=== PATIENT | male | born 1930 | race Asian ===

== ENCOUNTER 2018-03-12 12:28 | Inpatient (IN) | payer OTHER ==
[~2018-03-12] VITALS: Ht 160 cm; Wt 64.9 kg
[2018-03-12 12:57] VITALS: BP 102/67
[2018-03-12 14:15] LABS: BASOPHILS % (AUTO) 0.2 % (0.0-2.0); EOSINOPHILS # (AUTO) 0.3 K/uL (0-0.4); HEMATOCRIT 31.4 % (36-52); HEMOGLOBIN 10.5 g/dL (12.0-18.0); LYMPHOCYTES # (AUTO) 1.4 K/uL (2.0-11.5); LYMPHOCYTES % (AUTO) 20.2 % (20.5-51.1); MEAN CORPUSCULAR HEMOGLOBIN 33 pg (27-31); MEAN CORPUSCULAR HGB CONC 33 g/dL (33-37); MEAN CORPUSCULAR VOLUME 99.7 fL (80-94); MONOCYTES # (AUTO) 0.7 K/uL (0.8-1.0); MONOCYTES % (AUTO) 10.7 % (1.7-9.3); NEUTROPHILS # (AUTO) 4.4 K/uL (1.8-7.7); NEUTROPHILS % (AUTO) 64.9 % (42.2-75.2); PLATELET COUNT (AUTO) 295 K/uL (140-450); RED BLOOD CELL COUNT(AUTO) 3.15 MIL/uL (4.20-6.10); WHITE BLOOD COUNT (AUTO) 6.8 K/uL (4.8-10.8)
[2018-03-12] MEDS ORDERED: ASPI81CT89 PO (14:32)
[2018-03-12] MEDS ORDERED: FINA5TAB1 PO (14:34)
[2018-03-12 14:36] LABS: APPEARANCE,URINE CLOUDY (CLEAR); BILIRUBIN,URINE NEGATIVE (NEGATIVE); BLOOD, URINE NEGATIVE (NEGATIVE); COLOR,URINE YELLOW (YELLOW); LEUKOCYTE ESTERASE ,URINE 1+ (NEGATIVE); NITRITE, URINE NEGATIVE (NEGATIVE); PH,URINE >=9.0 (5.0-9.0); UGLUCOSE NEGATIVE (NEGATIVE)
[2018-03-12 14:37] LABS: RBC,URINE NONE SEEN /HPF (0-5); WBC,URINE 0-5 (RARE) /HPF (0-5)
[2018-03-12] MEDS ORDERED: METO5SOL19 PO (14:37)
[2018-03-12] MEDS ORDERED: TAMS0.4C96 PO (14:40)
[2018-03-12] MEDS ORDERED: CETI1SYR27 PO (14:42)
[2018-03-12 14:43] LABS: ANION GAP 12.5 (8-16); CARBON DIOXIDE 26.8 mmol/L (21-32); CHLORIDE 102 mmol/L (98-107); POTASSIUM 4.3 mmol/L (3.5-5.1); SODIUM SERUM 137 mmol/L (136-145)
[2018-03-12] MEDS ORDERED: ATOR20TA PO (14:43)
[2018-03-12 14:44] LABS: ALBUMIN 3.9 g/dL (3.4-5.0); ASPARTATE AMINOTRANSFERASE 16 U/L (15-37); CREATININE 2.2 mg/dL (0.7-1.3); GLUCOSE 127 mg/dL (74-106); TOTAL BILIRUBIN 0.2 mg/dL (0.0-1.0); UREA NITROGEN, BLOOD 37 mg/dL (7-18)
[2018-03-12] MEDS ORDERED: CLOP75TA55 PO (14:45)
[2018-03-12] MEDS ORDERED: CELE200C PO (14:46)
[2018-03-12] MEDS ORDERED: AMLO5TAB PO (14:47)
[2018-03-12] MEDS ORDERED: DOCU100C16 PO (14:48)
[2018-03-12] MEDS ORDERED: ESOM40EC PO (14:49)
[2018-03-12] MEDS ORDERED: ROPI0.5T PO (14:51)
[2018-03-12] MEDS ORDERED: NACL 0.9% 1,000 ML IV ONE (14:55)
[2018-03-12] MEDS ORDERED: HYDROcodone/APAP 5/325 MG 1 TAB TAB PO PRN (17:05)
[2018-03-12] MEDS ORDERED: ONDANSETRON 4 MG/2 ML VIAL IM/IVP PRN (17:05)
[2018-03-12] MEDS ORDERED: ACETAMINOPHEN 325 MG TAB PO PRN (17:05)
[2018-03-12] MEDS ORDERED: DOCUSATE SODIUM 100 MG GELCAP PO PRN (17:05)
[2018-03-12] MEDS ORDERED: MECLIZINE 25 MG TAB PO PRN (17:10)
[2018-03-12 17:55] LABS: MAGNESIUM 2.7 mg/dL (1.8-2.4); PHOSPHORUS 4.2 mg/dL (2.5-4.9); PROTHROMBIN TIME 9.9 secs (10.8-13.4)
[2018-03-12 17:56] LABS: FREE T4 (FREE THYROXINE) 1.04 ng/dL (0.76-1.46); THYROID STIMULATING HORMONE 0.94 uIU/mL (0.34-3.74)
[2018-03-12] MEDS ORDERED: DOCUSATE SODIUM 100 MG GELCAP PO SCH (18:00)
[2018-03-12] MEDS: NACL 0.9% 1,000 ML IV SCH (18:21)
[2018-03-12 20:30] VITALS: BP 129/60
[2018-03-12] MEDS: TAMSULOSIN 0.4 MG CAP PO SCH (21:53)
[2018-03-12] MEDS: METOCLOPRAMIDE 10 MG/10 ML SYRP UDC PO SCH (21:53)
[2018-03-12] MEDS: rOPINIRole 0.25 MG TAB PO SCH (21:54)
[2018-03-12] MEDS: DOCUSATE SODIUM 100 MG GELCAP PO SCH (21:54)
[2018-03-13] VITALS: BP 125/51
[2018-03-13] MEDS ORDERED: cefTRIAXone 1,000 MG VIAL ONE (00:39)
[2018-03-13] MEDS: NACL 0.9% 1,000 ML IV SCH ×2 (00:42→22:05)
[2018-03-13 07:25] LABS: BASOPHILS % (AUTO) 0.2 % (0.0-2.0); EOSINOPHILS # (AUTO) 0.4 K/uL (0-0.4); EOSINOPHILS % (AUTO) 6.7 % (0.0-4.0); HEMATOCRIT 32.4 % (36-52); HEMOGLOBIN 10.7 g/dL (12.0-18.0); LYMPHOCYTES # (AUTO) 1.4 K/uL (2.0-11.5); LYMPHOCYTES % (AUTO) 22.4 % (20.5-51.1); MEAN CORPUSCULAR HEMOGLOBIN 33 pg (27-31); MEAN CORPUSCULAR HGB CONC 33 g/dL (33-37); MEAN CORPUSCULAR VOLUME 100.4 fL (80-94); MONOCYTES # (AUTO) 0.6 K/uL (0.8-1.0); MONOCYTES % (AUTO) 9.5 % (1.7-9.3); NEUTROPHILS # (AUTO) 3.9 K/uL (1.8-7.7); NEUTROPHILS % (AUTO) 61.2 % (42.2-75.2); PLATELET COUNT (AUTO) 302 K/uL (140-450); RED BLOOD CELL COUNT(AUTO) 3.23 MIL/uL (4.20-6.10); WHITE BLOOD COUNT (AUTO) 6.4 K/uL (4.8-10.8)
[2018-03-13 08:00] VITALS: BP 136/49
[2018-03-13 08:13] LABS: CHOL/HDL RATIO 2.9 (1-4.5)
[2018-03-13 08:21] LABS: ANION GAP 12.8 (8-16); CARBON DIOXIDE 25.4 mmol/L (21-32); CHLORIDE 106 mmol/L (98-107); CREATININE 1.9 mg/dL (0.7-1.3); GLUCOSE 97 mg/dL (74-106); POTASSIUM 4.2 mmol/L (3.5-5.1); SODIUM SERUM 140 mmol/L (136-145); UREA NITROGEN, BLOOD 33 mg/dL (7-18)
[2018-03-13 09:00] VITALS: BP 128/54
[2018-03-13 09:00] LABS: MAGNESIUM 2.3 mg/dL (1.8-2.4); PHOSPHORUS 4.2 mg/dL (2.5-4.9)
[2018-03-13] MEDS ORDERED: LACTOBACILLUS RHAMNOSUS GG 1 EACH CAP PO SCH (09:00)
[2018-03-13] MEDS ORDERED: ASPIRIN 81 MG TAB.CHEW PO SCH (09:00)
[2018-03-13 09:05] VITALS: BP 112/56
[2018-03-13 09:10] VITALS: BP 120/59
[2018-03-13] MEDS: FINASTERIDE 5 MG TAB PO SCH (09:18)
[2018-03-13] MEDS: CLOPIDOGREL 75 MG TAB PO SCH (09:18)
[2018-03-13] MEDS: DOCUSATE SODIUM 100 MG GELCAP PO SCH ×2 (09:19→21:00)
[2018-03-13] MEDS: CELECOXIB 100 MG CAP PO SCH (09:19)
[2018-03-13] MEDS: amLODIPine 5 MG TAB PO SCH (09:20)
[2018-03-13] MEDS: FAMOTIDINE 20 MG TAB PO SCH (09:20)
[2018-03-13] MEDS: ATORVASTATIN 20 MG TAB PO SCH (09:20)
[2018-03-13] MEDS: METOCLOPRAMIDE 10 MG/10 ML SYRP UDC PO SCH ×2 (09:21→20:59)
[2018-03-13 16:00] VITALS: BP 134/61
[2018-03-13] MEDS: TAMSULOSIN 0.4 MG CAP PO SCH (20:59)
[2018-03-13] MEDS: rOPINIRole 0.25 MG TAB PO SCH (21:00)
[2018-03-14] VITALS: BP 123/58
[2018-03-14 06:40] LABS: BASOPHILS % (AUTO) 0.1 % (0.0-2.0); EOSINOPHILS # (AUTO) 0.5 K/uL (0-0.4); EOSINOPHILS % (AUTO) 6.9 % (0.0-4.0); HEMATOCRIT 32.4 % (36-52); HEMOGLOBIN 10.8 g/dL (12.0-18.0); LYMPHOCYTES # (AUTO) 1.5 K/uL (2.0-11.5); LYMPHOCYTES % (AUTO) 23.4 % (20.5-51.1); MEAN CORPUSCULAR HEMOGLOBIN 33 pg (27-31); MEAN CORPUSCULAR HGB CONC 33 g/dL (33-37); MEAN CORPUSCULAR VOLUME 99.2 fL (80-94); MONOCYTES # (AUTO) 0.6 K/uL (0.8-1.0); NEUTROPHILS # (AUTO) 3.9 K/uL (1.8-7.7); NEUTROPHILS % (AUTO) 60.6 % (42.2-75.2); PLATELET COUNT (AUTO) 298 K/uL (140-450); RED BLOOD CELL COUNT(AUTO) 3.27 MIL/uL (4.20-6.10); RED CELL DISTRIBUTION WIDTH 13.2 % (11.6-13.7); WHITE BLOOD COUNT (AUTO) 6.5 K/uL (4.8-10.8)
[2018-03-14 07:24] LABS: ANION GAP 15.1 (8-16); CARBON DIOXIDE 23.1 mmol/L (21-32); CHLORIDE 106 mmol/L (98-107); CREATININE 1.9 mg/dL (0.7-1.3); GLUCOSE 99 mg/dL (74-106); POTASSIUM 4.2 mmol/L (3.5-5.1); SODIUM SERUM 140 mmol/L (136-145); UREA NITROGEN, BLOOD 29 mg/dL (7-18)
[2018-03-14 07:27] LABS: MAGNESIUM 1.9 mg/dL (1.8-2.4); PHOSPHORUS 4.3 mg/dL (2.5-4.9)
[2018-03-14 08:00] VITALS: BP 124/64
[2018-03-14] MEDS ORDERED: LACTOBACILLUS RHAMNOSUS GG 1 EACH CAP PO SCH (09:00)
[2018-03-14] MEDS: CLOPIDOGREL 75 MG TAB PO SCH (09:54)
[2018-03-14] MEDS: CELECOXIB 100 MG CAP PO SCH (09:54)
[2018-03-14] MEDS: ATORVASTATIN 20 MG TAB PO SCH (09:55)
[2018-03-14] MEDS: FAMOTIDINE 20 MG TAB PO SCH (09:55)
[2018-03-14] MEDS: FINASTERIDE 5 MG TAB PO SCH (09:56)
[2018-03-14] MEDS: amLODIPine 5 MG TAB PO SCH (09:56)
[2018-03-14] MEDS: DOCUSATE SODIUM 100 MG GELCAP PO SCH ×2 (09:57→23:22)
[2018-03-14] MEDS: METOCLOPRAMIDE 10 MG/10 ML SYRP UDC PO SCH ×2 (09:58→23:22)
[2018-03-14 16:00] VITALS: BP 105/62
[2018-03-14] MEDS: rOPINIRole 0.25 MG TAB PO SCH (21:00)
[2018-03-14] MEDS: TAMSULOSIN 0.4 MG CAP PO SCH (21:00)
[2018-03-15] VITALS: BP 112/60
[2018-03-15] MEDS: NACL 0.9% 1,000 ML IV SCH (00:57)
[2018-03-15 06:29] LABS: BASOPHILS % (AUTO) 0.3 % (0.0-2.0); EOSINOPHILS # (AUTO) 0.3 K/uL (0-0.4); EOSINOPHILS % (AUTO) 4.9 % (0.0-4.0); HEMATOCRIT 31.4 % (36-52); HEMOGLOBIN 10.8 g/dL (12.0-18.0); LYMPHOCYTES # (AUTO) 1.6 K/uL (2.0-11.5); LYMPHOCYTES % (AUTO) 23.8 % (20.5-51.1); MEAN CORPUSCULAR HEMOGLOBIN 34 pg (27-31); MEAN CORPUSCULAR HGB CONC 35 g/dL (33-37); MEAN CORPUSCULAR VOLUME 98.9 fL (80-94); MONOCYTES # (AUTO) 0.7 K/uL (0.8-1.0); MONOCYTES % (AUTO) 10.3 % (1.7-9.3); NEUTROPHILS % (AUTO) 60.7 % (42.2-75.2); PLATELET COUNT (AUTO) 277 K/uL (140-450); RED BLOOD CELL COUNT(AUTO) 3.18 MIL/uL (4.20-6.10); RED CELL DISTRIBUTION WIDTH 13.1 % (11.6-13.7); WHITE BLOOD COUNT (AUTO) 6.6 K/uL (4.8-10.8)
[2018-03-15 07:26] LABS: ANION GAP 16.5 (8-16); CHLORIDE 106 mmol/L (98-107); GLUCOSE 99 mg/dL (74-106); POTASSIUM 4.5 mmol/L (3.5-5.1); SODIUM SERUM 141 mmol/L (136-145); UREA NITROGEN, BLOOD 36 mg/dL (7-18)
[2018-03-15 07:48] LABS: MAGNESIUM 1.8 mg/dL (1.8-2.4); PHOSPHORUS 4.3 mg/dL (2.5-4.9)
[2018-03-15 08:00] VITALS: BP 135/75
[2018-03-15] MEDS: amLODIPine 5 MG TAB PO SCH (09:09)
[2018-03-15] MEDS: CELECOXIB 100 MG CAP PO SCH (09:10)
[2018-03-15] MEDS: CLOPIDOGREL 75 MG TAB PO SCH (09:10)
[2018-03-15] MEDS: METOCLOPRAMIDE 10 MG/10 ML SYRP UDC PO SCH ×2 (09:10→20:45)
[2018-03-15] MEDS: DOCUSATE SODIUM 100 MG GELCAP PO SCH ×2 (09:10→20:45)
[2018-03-15] MEDS: FAMOTIDINE 20 MG TAB PO SCH (09:11)
[2018-03-15] MEDS: ATORVASTATIN 20 MG TAB PO SCH (09:11)
[2018-03-15] MEDS: FINASTERIDE 5 MG TAB PO SCH (09:11)
[2018-03-15 16:00] VITALS: BP 109/75
[2018-03-15] MEDS: TAMSULOSIN 0.4 MG CAP PO SCH (20:45)
[2018-03-15] MEDS: rOPINIRole 0.25 MG TAB PO SCH (20:45)
[2018-03-16] VITALS: BP 100/61
[2018-03-16] MEDS: NACL 0.9% 1,000 ML IV SCH (01:58)
[2018-03-16 06:21] LABS: FOLIC ACID 7.4 ng/mL (>3.0)
[2018-03-16 06:36] LABS: BASOPHILS % (AUTO) 0.1 % (0.0-2.0); EOSINOPHILS # (AUTO) 0.4 K/uL (0-0.4); EOSINOPHILS % (AUTO) 4.4 % (0.0-4.0); HEMOGLOBIN 10.9 g/dL (12.0-18.0); LYMPHOCYTES # (AUTO) 1.7 K/uL (2.0-11.5); LYMPHOCYTES % (AUTO) 19.4 % (20.5-51.1); MEAN CORPUSCULAR HEMOGLOBIN 34 pg (27-31); MEAN CORPUSCULAR HGB CONC 34 g/dL (33-37); MEAN CORPUSCULAR VOLUME 98.8 fL (80-94); MONOCYTES # (AUTO) 0.8 K/uL (0.8-1.0); MONOCYTES % (AUTO) 8.5 % (1.7-9.3); NEUTROPHILS # (AUTO) 6.1 K/uL (1.8-7.7); NEUTROPHILS % (AUTO) 67.6 % (42.2-75.2); PLATELET COUNT (AUTO) 276 K/uL (140-450); RED BLOOD CELL COUNT(AUTO) 3.24 MIL/uL (4.20-6.10); RED CELL DISTRIBUTION WIDTH 13.1 % (11.6-13.7)
[2018-03-16 06:52] LABS: ANION GAP 17.6 (8-16); CARBON DIOXIDE 20.5 mmol/L (21-32); CHLORIDE 106 mmol/L (98-107); CREATININE 1.9 mg/dL (0.7-1.3); GLUCOSE 103 mg/dL (74-106); POTASSIUM 4.1 mmol/L (3.5-5.1); SODIUM SERUM 140 mmol/L (136-145); UREA NITROGEN, BLOOD 34 mg/dL (7-18)
[2018-03-16 07:00] LABS: MAGNESIUM 1.7 mg/dL (1.8-2.4); PHOSPHORUS 4.4 mg/dL (2.5-4.9)
[2018-03-16] MEDS ORDERED: ACET-1182 PO (07:08)
[2018-03-16 08:00] VITALS: BP 124/69
[2018-03-16] MEDS ORDERED: MAG SULF 2000 MG/WATER PREMIX 50 ML IV SCH (09:54)
[2018-03-16] MEDS: CELECOXIB 100 MG CAP PO SCH (09:56)
[2018-03-16] MEDS: ATORVASTATIN 20 MG TAB PO SCH (09:56)
[2018-03-16] MEDS: amLODIPine 5 MG TAB PO SCH (09:57)
[2018-03-16] MEDS: FINASTERIDE 5 MG TAB PO SCH (09:57)
[2018-03-16] MEDS: CLOPIDOGREL 75 MG TAB PO SCH (09:57)
[2018-03-16] MEDS: FAMOTIDINE 20 MG TAB PO SCH (09:57)
[2018-03-16] MEDS: METOCLOPRAMIDE 10 MG/10 ML SYRP UDC PO SCH (09:58)
[2018-03-16] MEDS: DOCUSATE SODIUM 100 MG GELCAP PO SCH (09:58)
== END 2018-03-16 15:27 | DRG 682 ==
LOC: MED 12:28 → MTU 17:02
PROVIDERS: ADMIT General Practice; ATTEND General Practice
DX: N17.0 Acute kidney failure with tubular necrosis (principal); G93.41 Metabolic encephalopathy; N39.0 Urinary tract infection, site not specified; G90.8 Other disorders of autonomic nervous system; E86.0 Dehydration; E83.42 Hypomagnesemia; N31.9 Neuromuscular dysfunction of bladder, unspecified; I13.10 Hypertensive heart and chronic kidney disease without heart failure, with stage 1 through stage 4 chronic kidney disease, or unspecified chronic kidney disease; N18.3 Chronic kidney disease, stage 3 (moderate); G20 Parkinson's disease; D53.9 Nutritional anemia, unspecified; N40.1 Benign prostatic hyperplasia with lower urinary tract symptoms; K21.9 Gastro-esophageal reflux disease without esophagitis; R33.9 Retention of urine, unspecified; M19.90 Unspecified osteoarthritis, unspecified site; G89.29 Other chronic pain; Z86.73 Personal history of transient ischemic attack (TIA), and cerebral infarction without residual deficits; Z74.01 Bed confinement status; Z79.82 Long term (current) use of aspirin; Z79.02 Long term (current) use of antithrombotics/antiplatelets
CPT/HCPCS: 36415; 70450; 71045; 80048; 80053; 81001; 82272; 82607; 82728; 82746; 83036; 83540; 83690; 83735; 83880; 84100; 84439; 84443; 84484; 85025; 85045; 85610; 85730; 87081; 87086; 93005; 96360; 96361; 97110; 97116; 97530; 99285; J0696; J3475; J7030; J7060; J8597

== ENCOUNTER 2018-05-08 23:36 | Inpatient (IN) | payer OTHER ==
[~2018-05-08] VITALS: Ht 149.9 cm; Wt 68.0 kg
[~2018-05-08 23:36] MED LIST: ACET-1182 PO; AMLO5TAB PO; ASPI-1718 PO; ATOR20TA PO; CELE200C PO; CETI1SYR27 PO; CLOP75TA55 PO; DOCU100C16 PO; ESOM40EC PO; FINA5TAB1 PO; METO5SOL19 PO; ROPI0.5T40 PO; TAMS0.4C96 PO
--- NOTE | 2018-05-08 23:36 | NUR ---
PT MIKE BLS. TAKEN TO BED 2
[2018-05-08 23:45] VITALS: BP 118/57
--- NOTE | 2018-05-09 00:01 | NUR ---
LAB AT BEDSIDE FOR DRAWS
[2018-05-09] MEDS ORDERED: HYDR-5122 PO (00:04)
[2018-05-09] MEDS ORDERED: ASCO500T45 PO (00:04)
[2018-05-09] MEDS ORDERED: CRAN450T5 PO (00:04)
[2018-05-09] MEDS ORDERED: BISA-213 RC (00:04)
[2018-05-09] MEDS ORDERED: ACET-2619 PO (00:04)
[2018-05-09] MEDS ORDERED: MAGN400S60 PO (00:04)
[2018-05-09] MEDS ORDERED: NA P133N1 RC (00:04)
[2018-05-09] MEDS ORDERED: LACT25CA PO (00:04)
[2018-05-09 00:23] LABS: BASOPHILS % (AUTO) 0.1 % (0.0-2.0); EOSINOPHILS # (AUTO) 0.4 K/uL (0-0.4); HEMATOCRIT 29.6 % (36-52); LYMPHOCYTES # (AUTO) 1.1 K/uL (2.0-11.5); LYMPHOCYTES % (AUTO) 12.5 % (20.5-51.1); MEAN CORPUSCULAR HEMOGLOBIN 33 pg (27-31); MEAN CORPUSCULAR HGB CONC 34 g/dL (33-37); MEAN CORPUSCULAR VOLUME 98.4 fL (80-94); MONOCYTES # (AUTO) 0.6 K/uL (0.8-1.0); NEUTROPHILS # (AUTO) 6.9 K/uL (1.8-7.7); NEUTROPHILS % (AUTO) 76.4 % (42.2-75.2); PLATELET COUNT (AUTO) 245 K/uL (140-450); RED BLOOD CELL COUNT(AUTO) 3.01 MIL/uL (4.20-6.10); RED CELL DISTRIBUTION WIDTH 13.3 % (11.6-13.7)
[2018-05-09 00:27] LABS: APPEARANCE,URINE HAZY (CLEAR); BILIRUBIN,URINE NEGATIVE (NEGATIVE); BLOOD, URINE NEGATIVE (NEGATIVE); COLOR,URINE YELLOW (YELLOW); LEUKOCYTE ESTERASE ,URINE 1+ (NEGATIVE); NITRITE, URINE POSITIVE (NEGATIVE); UGLUCOSE NEGATIVE (NEGATIVE)
--- NOTE | 2018-05-09 00:29 | NUR ---
PT RETURN FROM RADIOLOGY
[2018-05-09 00:40] LABS: ANION GAP 10.1 (8-16); CARBON DIOXIDE 26.3 mmol/L (21-32); CHLORIDE 106 mmol/L (98-107); CREATININE 2.2 mg/dL (0.7-1.3); GLUCOSE 116 mg/dL (74-106); POTASSIUM 4.4 mmol/L (3.5-5.1); SODIUM SERUM 138 mmol/L (136-145); UREA NITROGEN, BLOOD 35 mg/dL (7-18)
[2018-05-09 00:46] LABS: ALBUMIN 3.6 g/dL (3.4-5.0); ASPARTATE AMINOTRANSFERASE 16 U/L (15-37); TOTAL BILIRUBIN 0.2 mg/dL (0.0-1.0)
[2018-05-09 00:52] LABS: RBC,URINE 0-5 /HPF (0-5)
[2018-05-09 00:53] LABS: YEAST,URINE Few /HPF (None Seen)
[2018-05-09] MEDS ORDERED: cefTRIAXone 1,000 MG VIAL ONE (01:44)
--- NOTE | 2018-05-09 05:31 | NUR ---
Dr. Guzmán evaluating patient at bedside.
[2018-05-09] MEDS ORDERED: HYDROcodone/APAP 7.5/325 MG 1 TAB PO PRN (05:35)
[2018-05-09] MEDS ORDERED: ACETAMINOPHEN 325 MG TAB PO PRN ×3 (05:35→06:50)
[2018-05-09] MEDS ORDERED: DOCUSATE SODIUM 100 MG GELCAP PO PRN (05:35)
[2018-05-09] MEDS ORDERED: ONDANSETRON 4 MG/2 ML VIAL IM/IVP PRN (05:35)
--- NOTE | 2018-05-09 06:25 | NUR ---
RECEIVED BEDSIDE REPORT FORM DRIVER MERCHANDISER, PATIENT AMBULATED TO BED FROM [facility], SLOW GAIT BUT STEADY, BACK SKIN INTACT. PATIENT C/O SEVERE PAIN STATED 10/10 IN BACK WILL MEDIATED ACCORDING TO MD ORDER. V/S TAKEN NOTED BP 106/42 REASSESSED PATIENT LYING IN BED 115/60 HR 69 TEMP 98.4 RR 16 EVEN AND UNLABORED, O2SAT 99% ON RA. MRSA SCREEN TAKEN. IV IN LEFT FA 18 G. STARTED NS AT 100 ML/HR. BED ALARM ON.
[2018-05-09] MEDS: MORPHINE SULFATE 2 MG/ML SYR IVP PRN (06:34)
[2018-05-09] MEDS: NACL 0.9% 1,000 ML IV SCH ×2 (06:34→19:43)
[2018-05-09] MEDS ORDERED: MAGNESIUM HYDROXIDE 2400 MG/30 ML UDC PO PRN (06:50)
[2018-05-09] MEDS ORDERED: NON-FORMULARY ITEM (Bisacodyl (Dulcolax) 10 MG) RC PRN (06:50)
--- NOTE | 2018-05-09 07:30 | NUR ---
ENDORSED PATIENT TO DAY SHIFT NURSE, PATIENT STABLE.
--- NOTE | 2018-05-09 07:32 | NUR ---
RECEIVED REPORT FROM POLE RIVER NURSE. PT IS STABLE AND RESTING COMFORTABLY IN BED.
--- NOTE | 2018-05-09 07:45 | NUR ---
WHILE PERFORMING MORNING VITALS PT COMPLAINED OF PAIN AND REQUESTED PAIN MEDICATION. GAVE PT TYLENOL PER ORDERS. DUE TO BP BEING 91/67 GAVE TYLENOL BEFORE GIVING NORCO. PT REQUESTED ANOTHER BLANKET STATING HE WAS COLD.
[2018-05-09] MEDS ORDERED: SODIUM PHOSPHATE 118 ML ENEM RC SCH (07:55)
[2018-05-09 08:00] VITALS: BP 91/67
[2018-05-09] MEDS ORDERED: NON-FORMULARY ITEM (Clopidogrel Bisulfate (Clopidogrel) 75 MG) PO SCH (09:00)
[2018-05-09] MEDS ORDERED: CETIRIZINE HCL PO SCH (09:00)
[2018-05-09] MEDS: amLODIPine 5 MG TAB PO SCH (09:00)
[2018-05-09] MEDS ORDERED: DOCUSATE SODIUM 100 MG PO SCH (09:00)
[2018-05-09] MEDS ORDERED: NON-FORMULARY ITEM (Esomeprazole Magnesium* (Nexium*) 40 MG) PO SCH (09:00)
[2018-05-09] MEDS ORDERED: NON-FORMULARY ITEM (Cranberry Fruit (Cranberry) 450 MG) PO SCH (09:00)
--- NOTE | 2018-05-09 09:26 | NUR ---
CHANGED PATIENTS POSITION IN BED. CHANGED MERCEDES CATH LEG BAG TO HANGING BED BAG. ASSESSED MERCEDES CATH AND REMOVED 9ML OF SALINE FROM BALLOON AND INSERTED NEW 10 ML OF SALINE INTO BALLOON TO SEE IF THAT HELPS WITH THE LEAKING. SPOKE WITH PT VIA YEAST PUSHER. PT STATED MERCEDES CATH HAS BEEN IN PLACE FOR 8 MONTHS. LAST CHANGED ON APRIL 13, 2018.
--- NOTE | 2018-05-09 09:45 | NUR ---
ADMINISTERED PATIENTS PO MEDICATIONS. PATIENT TOLERATED PO MEDICATIONS WELL. PT RESTING COMFORTABLY IN BED. PT SON AT BEDSIDE. PT NOT COMPLAINING OF ANY PAIN AT THIS TIME. WILL CONTINUE TO MONITOR.
[2018-05-09] MEDS: CELECOXIB 100 MG CAP PO SCH (09:50)
[2018-05-09] MEDS: CLOPIDOGREL 75 MG TAB PO SCH (09:50)
[2018-05-09] MEDS: METOCLOPRAMIDE 10 MG/10 ML SYRP UDC PO SCH ×2 (09:51→20:32)
[2018-05-09] MEDS: FLUCONAZOLE 100 MG TAB PO SCH (09:52)
[2018-05-09] MEDS: DOCUSATE SODIUM 100 MG GELCAP PO SCH ×2 (09:52→20:31)
[2018-05-09] MEDS: FINASTERIDE 5 MG TAB PO SCH (09:53)
[2018-05-09] MEDS: ASPIRIN 81 MG TAB.CHEW PO SCH ×2 (09:53→10:14)
[2018-05-09] MEDS: PANTOPRAZOLE 40 MG TABEC PO SCH (09:53)
[2018-05-09] MEDS: ASCORBIC ACID 500 MG TAB PO SCH (09:54)
[2018-05-09 10:02] LABS: MAGNESIUM 2.4 mg/dL (1.8-2.4); PHOSPHORUS 4.3 mg/dL (2.5-4.9); THYROID STIMULATING HORMONE 0.93 uIU/mL (0.34-3.74)
[2018-05-09 10:05] LABS: PROTHROMBIN TIME 9.3 secs (10.8-13.4)
[2018-05-09] MEDS ORDERED: BISACODYL 10 MG SUPP RC PRN (10:05)
[2018-05-09] MEDS: ATORVASTATIN 20 MG TAB PO SCH (10:14)
[2018-05-09] MEDS ORDERED: BISACODYL 10 MG SUPP RC SCH (11:25)
--- NOTE | 2018-05-09 11:36 | NUR ---
ADMINISTERED FLEET ENEMA PER DR ORDERS. PT TOLERATED WELL. PT RESTING IN BED COMFORTABLY. WILL CONTINUE TO MONITOR.
--- NOTE | 2018-05-09 11:51 | NUR ---
PT AMBULATED TO BATHROOM FOR BOWEL MOVEMENT POST ENEMA. PT AMBULATES WELL. PT BACK IN BED RESTING COMFORTABLY.
--- NOTE | 2018-05-09 13:45 | NUR ---
PT REQUESTING LUNCH. PT WAS NOT GIVEN A LUNCH TRAY WHEN THE LUNCH TRAYS WHERE BROUGHT TO THE UNIT. CALLED FOR LUNCH TRAY BUT NEEDED A DIET ORDER. ASKED RESIDENTS FOR DIET ORDER. LUNCH TRAY WAS BROUGHT TO PATIENT. PT ATE 100% OF HIS MEAL.
--- NOTE | 2018-05-09 15:18 | NUR ---
ADMINISTERED SUPPOSITORY TO PT TO HELP WITH BOWEL MOVEMENT ORDERED. PT TOLERATED WELL. PT RESTING IN BED TRYING TO CALL SON ON PHONE.
[2018-05-09 16:00] VITALS: BP 97/44
--- NOTE | 2018-05-09 16:15 | NUR ---
PT AMBULATED BY SELF TO THE RESTROOM . PT STATED HE HAD A BOWEL MOVEMENT. ASSISTED PT BACK TO BED.
[2018-05-09] MEDS: SIMETHICONE 80 MG TAB.CHEW PO SCH (16:23)
--- NOTE | 2018-05-09 19:29 | NUR ---
GAVE REPORT TO COOLING TOWER TECHNICIAN NURSE. PT RESTING IN BED COMFORTABLY. ALL SAFETY MEASURES IN PLACE.
--- NOTE | 2018-05-09 19:30 | NUR ---
RECD. RESTING IN BED, SLEEPING COMFORTABLY BUT EASILY AROUSABLE. IV OF NS AT 50 ML/HR INFUSING, LEFT HAND G18.F/C PATENT DRAINING CLEAR YELLOW URINE. DENIES PAIN 0/10.
--- NOTE | 2018-05-09 20:00 | NUR ---
Patient's Plan of Care was discussed and reviewed with NEWCOMER HOSTESS: CRISTINA RANDALL
--- NOTE | 2018-05-09 20:17 | NUR ---
ABLE TO VERBALIZED SIMPLE NEEDS LIKE COVER, PAIN. SAFETY MEASURES ENFORCED. BED ON ALARM.
[2018-05-09] MEDS: TAMSULOSIN 0.4 MG CAP PO SCH (20:31)
[2018-05-09] MEDS: rOPINIRole 0.25 MG TAB PO SCH (20:33)
--- NOTE | 2018-05-09 20:35 | NUR ---
DUE PO MEDICATIONS GIVEN, TOLERATED WELL.
[2018-05-09] MEDS: HYDROcodone/APAP 5/325 MG 1 TAB TAB PO PRN (21:28)
[2018-05-10] VITALS: BP 114/53
--- NOTE | 2018-05-10 00:08 | NUR ---
SLEEPING COMFORTABLY IN BED, VS STABLE.
--- NOTE | 2018-05-10 04:00 | NUR ---
CONDITION REMAIN STABLE, STILL SLEEPING COMFORTABLY IN BED.
--- NOTE | 2018-05-10 06:48 | NUR ---
ABLE TO SLEEP WELL. CONDITION REMAIN STABLE DURING SHIFT. WILL ENDORSE TO AM SHIFT NURSE FOR CONTINUITY OF CARE.
--- NOTE | 2018-05-10 07:35 | NUR ---
RECEIVED REPORT FROM OFFICIAL GREETER NURSE. PATIENT LYING DOWN IN BED SLEEPING, AROUSABLE BY VOICE. NO DISTRESS NOTED. DENIES ANY PAIN AT THIS TIME. AAOX3, CALM, COOPERATIVE, SKIN COLOR APPROPRIATE TO ETHNICITY, WARM TO TOUCH. SKIN INTACT. RESPIRATIONS EVEN, UNLABORED, ON ROOM AIR. LUNGS CTA ON ALL LOBES. IV SITE INTACT, PATENT, AND INFUSING IVF PER MD ORDERS. MERCEDES CATHETER IN PLACE. REVIEWED PLAN OF CARE WITH PATIENT. PATIENT VERBALIZED UNDERSTANDING. SAFETY MEASURES IN PLACE, CALL LIGHT WITHIN REACH. WILL CONTINUE TO MONITOR.
[2018-05-10 07:55] LABS: BASOPHILS % (AUTO) 0.2 % (0.0-2.0); EOSINOPHILS # (AUTO) 0.7 K/uL (0-0.4); EOSINOPHILS % (AUTO) 9.4 % (0.0-4.0); HEMATOCRIT 28.9 % (36-52); HEMOGLOBIN 9.8 g/dL (12.0-18.0); LYMPHOCYTES # (AUTO) 1.9 K/uL (2.0-11.5); LYMPHOCYTES % (AUTO) 26.9 % (20.5-51.1); MEAN CORPUSCULAR HEMOGLOBIN 34 pg (27-31); MEAN CORPUSCULAR HGB CONC 34 g/dL (33-37); MEAN CORPUSCULAR VOLUME 99.8 fL (80-94); MONOCYTES # (AUTO) 0.7 K/uL (0.8-1.0); MONOCYTES % (AUTO) 9.8 % (1.7-9.3); NEUTROPHILS # (AUTO) 3.8 K/uL (1.8-7.7); NEUTROPHILS % (AUTO) 53.7 % (42.2-75.2); PLATELET COUNT (AUTO) 233 K/uL (140-450); RED BLOOD CELL COUNT(AUTO) 2.89 MIL/uL (4.20-6.10); RED CELL DISTRIBUTION WIDTH 13.3 % (11.6-13.7); WHITE BLOOD COUNT (AUTO) 7.1 K/uL (4.8-10.8)
[2018-05-10 08:00] VITALS: BP 126/52
[2018-05-10 08:23] LABS: CARBON DIOXIDE 25.4 mmol/L (21-32); CHLORIDE 109 mmol/L (98-107); GLUCOSE 84 mg/dL (74-106); POTASSIUM 4.4 mmol/L (3.5-5.1); SODIUM SERUM 143 mmol/L (136-145); UREA NITROGEN, BLOOD 32 mg/dL (7-18)
[2018-05-10 08:30] LABS: CHOL/HDL RATIO 2.3 (1-4.5); MAGNESIUM 2.2 mg/dL (1.8-2.4); PHOSPHORUS 4.7 mg/dL (2.5-4.9)
--- NOTE | 2018-05-10 08:40 | NUR ---
PATIENT HAS BEEN SCREENED AND CATEGORIZED MODERATE NUTRITION RISK. PATIENT WILL BE SEEN WITHIN 3-5 DAYS OF ADMISSION. 05/11/18NADIA [address]
[2018-05-10] MEDS: PANTOPRAZOLE 40 MG TABEC PO SCH (09:03)
[2018-05-10] MEDS: METOCLOPRAMIDE 10 MG/10 ML SYRP UDC PO SCH ×2 (09:03→20:21)
[2018-05-10] MEDS: DOCUSATE SODIUM 100 MG GELCAP PO SCH ×2 (09:04→20:21)
[2018-05-10] MEDS: SIMETHICONE 80 MG TAB.CHEW PO SCH ×3 (09:04→17:16)
[2018-05-10] MEDS: ASPIRIN 81 MG TAB.CHEW PO SCH (09:04)
[2018-05-10] MEDS: HYDROcodone/APAP 5/325 MG 1 TAB TAB PO PRN ×2 (09:04→15:34)
[2018-05-10] MEDS: CELECOXIB 100 MG CAP PO SCH (09:04)
[2018-05-10] MEDS: FINASTERIDE 5 MG TAB PO SCH (09:05)
[2018-05-10] MEDS: ASCORBIC ACID 500 MG TAB PO SCH (09:05)
[2018-05-10] MEDS: FLUCONAZOLE 100 MG TAB PO SCH (09:05)
[2018-05-10] MEDS: ATORVASTATIN 20 MG TAB PO SCH (09:05)
[2018-05-10] MEDS: CLOPIDOGREL 75 MG TAB PO SCH (09:05)
[2018-05-10] MEDS: amLODIPine 5 MG TAB PO SCH (09:05)
--- NOTE | 2018-05-10 09:11 | NUR ---
PATIENT LYING DOWN IN BED WITH COMPLAINTS OF PAIN. NORCO GIVEN. OTHER SCHEDULED MEDICATIONS DUE GIVEN. WILL CONTINUE TO MONITOR.
[2018-05-10] MEDS: NACL 0.9% 1,000 ML IV SCH ×2 (10:57→15:43)
--- NOTE | 2018-05-10 11:23 | NUR ---
S.T. BEDSIDE SWALLOW EVAL COMPLETED See report for details. Pt presents with mild oral difficulties managing solids due to ill-fitting dentures. No overt s/s aspiration observed, however. Recommend: 1) Downgrade diet to mechanical soft ground, continue regular/thin liquids. 2) P.O. meds whole okay, taken with water or other thin liquid. No further tx indicated at this time. DC to [facility]. Time [id number]
--- NOTE | 2018-05-10 13:00 | NUR ---
PER DR. FLORES ORDERS, OLD MERCEDES CATHETER REMOVED AND NEW MERCEDES CATHETER INSERTED USING STERILE TECHNIQUE. PATIENT TOLERATED PROCEDURE WELL. WILL CONTINUE TO MONITOR.
--- NOTE | 2018-05-10 15:38 | NUR ---
C/O PAIN MEDICATED WITH NORCO 1 TAB ORDERED VITALS STABLE.
[2018-05-10 16:00] VITALS: BP 101/55
--- NOTE | 2018-05-10 16:35 | NUR ---
SON AT BEDSIDE READY TO TAKE PATIENT HOME. IV SITE REMOVED WITH MINIMAL BLOOD AND LUMEN COMPLETELY INTACT. ID BANDS REMOVED. PATIENT TO GET DRESSED AND THEN READY TO GO HOME. WILL CONTINUE TO MONITOR. Addendum: 05/10/18 at 1647 by Alex Brunner RN PLEASE DISREGARD NOTE ABOVE. WRONG PATIENT.
--- NOTE | 2018-05-10 17:17 | NUR ---
PATIENT LYING DOWN IN BED SLEEPING, AROUSABLE BY VOICE. NO DISTRESS NOTED. SCHEDULED MEDICATIONS DUE GIVEN. WILL CONTINUE TO MONITOR.
--- NOTE | 2018-05-10 19:25 | NUR ---
GAVE REPORT TO RESIDENT ASSISTANT CNA NURSE FOR CONTINUITY OF CARE. PATIENT IN STABLE CONDITION.
--- NOTE | 2018-05-10 19:26 | NUR ---
REPORT RECEIVED FROM AM NURSE AT BEDSIDE. PT IN STABLE CONDITION. AAOX4. INTRODUCED SELF TO PT. BOARD UPDATED. PT HAS COMPLAINTS OF 7/10 BACK PAIN. WILL MEDICATE. NO SOB. AFEBRILE. IV SITE L HAND 18G RUNNING NS@50ML/HR PATENT AND INTACT. SKIN WARM, DRY, AND INTACT WITH NO OPEN WOUNDS. PT HAS MERCEDES. BED LOCKED IN LOW POSITION. CALL GONZALEZ WITHIN REACH. SAFETY PRECAUTIONS IN PLACE. ALL NEEDS MET AT THIS TIME. WILL CONTINUE TO MONITOR.
[2018-05-10] MEDS: rOPINIRole 0.25 MG TAB PO SCH (20:21)
[2018-05-10] MEDS: TAMSULOSIN 0.4 MG CAP PO SCH (20:21)
--- NOTE | 2018-05-10 20:21 | NUR ---
COLACE, REGLAN, FLOMAX, PEPCID, AND REQUIP GIVEN PO. PT TOLERATED WELL.
[2018-05-10] MEDS: MORPHINE SULFATE 2 MG/ML SYR IVP PRN (20:22)
--- NOTE | 2018-05-10 20:22 | NUR ---
MORPHINE GIVEN FOR 7/10 BACK PAIN. PT TOLERATED WELL.
[2018-05-10] MEDS ORDERED: FAMOTIDINE 20 MG TAB PO SCH (21:00)
--- NOTE | 2018-05-10 22:45 | NUR ---
PT SLEEPING BUT AROUSABLE. NO S/S OF DISTRESS NOTED. BREATHING EVEN, UNLABORED, AND WNL. WILL CONTINUE TO MONITOR.
[2018-05-11] VITALS: BP 102/52
--- NOTE | 2018-05-11 00:33 | NUR ---
FRANKO DIAMOND AND RUNNING. PT TOLERATED WELL.
--- NOTE | 2018-05-11 03:15 | NUR ---
REPORT GIVEN TO PEPE BARGER. PT IN STABLE CONDITION.
--- NOTE | 2018-05-11 03:16 | NUR ---
RECEIVED REPORT FROM DENITA BRADSHAW FOR CONTINUITY OF CARE. PT SPEAKS NEPALI. PT ON ROOM AIR. PT ABLE TO MAKE NEEDS KNOWN, AND ABLE TO FOLLOW COMMANDS. PT AMBULATES WITH ASSISTANCE. PT SKIN IS INTACT AND MERCEDES CATHETER IS IN PLACE DRAINING TO GRAVITY. PT HAS A 18G IV TO LEFT HAND, ASYMPTOMATIC AND INTACT. VITAL SIGNS WITHIN NORMAL LIMITS. PT STABLE, DENIES PAIN, NO SIGNS OF DISTRESS NOTED AT THIS TIME. PT POSITIONED FOR COMFORT. BED IN LOWEST POSITION, BED ALARM ON. WILL CONTINUE TO MONITOR.
[2018-05-11 04:00] VITALS: BP 107/46
[2018-05-11 06:29] LABS: ANION GAP 13.6 (8-16); CARBON DIOXIDE 24.6 mmol/L (21-32); CHLORIDE 109 mmol/L (98-107); GLUCOSE 101 mg/dL (74-106); POTASSIUM 4.2 mmol/L (3.5-5.1); SODIUM SERUM 143 mmol/L (136-145); UREA NITROGEN, BLOOD 30 mg/dL (7-18)
[2018-05-11 06:39] LABS: BASOPHILS % (AUTO) 0.1 % (0.0-2.0); EOSINOPHILS # (AUTO) 0.5 K/uL (0-0.4); HEMATOCRIT 27.9 % (36-52); HEMOGLOBIN 9.4 g/dL (12.0-18.0); LYMPHOCYTES # (AUTO) 1.8 K/uL (2.0-11.5); LYMPHOCYTES % (AUTO) 21.5 % (20.5-51.1); MEAN CORPUSCULAR HEMOGLOBIN 34 pg (27-31); MEAN CORPUSCULAR HGB CONC 34 g/dL (33-37); MEAN CORPUSCULAR VOLUME 99.8 fL (80-94); MONOCYTES # (AUTO) 0.8 K/uL (0.8-1.0); MONOCYTES % (AUTO) 9.7 % (1.7-9.3); NEUTROPHILS # (AUTO) 5.2 K/uL (1.8-7.7); NEUTROPHILS % (AUTO) 62.7 % (42.2-75.2); PLATELET COUNT (AUTO) 238 K/uL (140-450); RED BLOOD CELL COUNT(AUTO) 2.79 MIL/uL (4.20-6.10); RED CELL DISTRIBUTION WIDTH 13.3 % (11.6-13.7); WHITE BLOOD COUNT (AUTO) 8.3 K/uL (4.8-10.8)
[2018-05-11 06:44] LABS: PHOSPHORUS 4.3 mg/dL (2.5-4.9)
--- NOTE | 2018-05-11 07:00 | NUR ---
PT STATES IT HAS BEEN TWO DAYS SINCE HE LAST HAD BM AND HE WANTS MEDICINE FOR IT NOW. GAVE HIM MILK OF MAGNESIUM ORDERED, PT TOLERATED WELL.
--- NOTE | 2018-05-11 07:30 | NUR ---
ENDORSED PT TO DAY SHIFT RN SWETA AT BEDSIDE, FOR CONTINUITY OF CARE. PT IN STABLE CONDITION.
--- NOTE | 2018-05-11 07:31 | NUR ---
RECEIVED REPORT FROM HAND FORMER NURSE. PATIENT SITTING IN BED WATCHING TV. NO DISTRESS NOTED. DENIES ANY PAIN AT THIS TIME. AAOX4, CALM, COOPERATIVE, SKIN COLOR APPROPRIATE TO ETHNICITY, WARM TO TOUCH. SKIN INTACT. RESPIRATIONS EVEN, UNLABORED, ON ROOM AIR. LUNGS CTA ON ALL LOBES. NO IV IN PLACE AT THIS TIME PATIENT JUST PULLED OUT PER HAND FORMER RN REPORTS. WILL INSERT NEW IV LINE LATER. MERCEDES CATHETER IN PLACE. REVIEWED PLAN OF CARE WITH PATIENT. PATIENT VERBALIZED UNDERSTANDING. SAFETY MEASURES IN PLACE, CALL LIGHT WITHIN REACH. WILL CONTINUE TO MONITOR.
[2018-05-11 08:00] VITALS: BP 107/56
--- NOTE | 2018-05-11 08:18 | NUR ---
Late entry. Rocephin IV completed at 0240
--- NOTE | 2018-05-11 09:08 | NUR ---
CM NOTE FAXED CLINICAL PACKET TO [facility] INCLUDING [facility] AND PT NOTES. PER DR'S ORDER, DC PLAN TO DC BACK TO [facility] ON 05/12/18.
[2018-05-11] MEDS: METOCLOPRAMIDE 10 MG/10 ML SYRP UDC PO SCH ×2 (09:37→20:13)
[2018-05-11] MEDS: CLOPIDOGREL 75 MG TAB PO SCH (09:38)
[2018-05-11] MEDS: ASCORBIC ACID 500 MG TAB PO SCH (09:38)
[2018-05-11] MEDS: CELECOXIB 100 MG CAP PO SCH (09:38)
[2018-05-11] MEDS: FINASTERIDE 5 MG TAB PO SCH (09:38)
[2018-05-11] MEDS: DOCUSATE SODIUM 100 MG GELCAP PO SCH ×2 (09:38→20:13)
[2018-05-11] MEDS: FLUCONAZOLE 100 MG TAB PO SCH (09:38)
[2018-05-11] MEDS: SIMETHICONE 80 MG TAB.CHEW PO SCH ×3 (09:39→17:49)
[2018-05-11] MEDS: LACTOBACILLUS RHAMNOSUS GG 1 EACH CAP PO SCH (09:39)
[2018-05-11] MEDS: ASPIRIN 81 MG TAB.CHEW PO SCH (09:39)
--- NOTE | 2018-05-11 09:44 | NUR ---
PATIENT SITTING IN BED. NO DISTRESS NOTED. SCHEDULED MEDICATIONS DUE GIVEN. WILL CONTINUE TO MONITOR.
--- NOTE | 2018-05-11 11:30 | NUR ---
PATIENT SITTING IN BED WATCHING TV. NO DISTRESS NOTED. WILL CONTINUE TO MONITOR.
[2018-05-11] MEDS: NACL 0.9% 1,000 ML IV SCH (11:43)
--- NOTE | 2018-05-11 13:08 | NUR ---
PATIENT LYING DOWN IN BED WITH LUNCH TRAY. SON AT BEDSIDE. NO DISTRESS NOTED. SCHEDULED MEDICATIONS DUE GIVEN. WILL CONTINUE TO MONITOR.
--- NOTE | 2018-05-11 13:29 | NUR ---
CM NOTE PER ALICIA OF [facility], IF PATIENT IS GOING BACK WITH NO ISOLATION, PATIENT CAN GO BACK TO RM [address] LUND WHEN READY FOR DISCHARGE.
--- NOTE | 2018-05-11 15:21 | NUR ---
PATIENT COMPLAINS OF CONSTIPATION. BISACODYL SUPPOSITORY GIVEN PER MD ORDERS.
[2018-05-11 16:00] VITALS: BP 139/52
--- NOTE | 2018-05-11 17:51 | NUR ---
PATIENT LYING DOWN IN BED SLEEPING, AROUSABLE BY VOICE. NO DISTRESS NOTED. SCHEDULED MEDICATIONS DUE GIVEN. WILL CONTINUE TO MONITOR.
--- NOTE | 2018-05-11 19:40 | NUR ---
GAVE REPORT TO SPEECH COACH NURSE FOR CONTINUITY OF CARE. PATIENT IN STABLE CONDITION.
--- NOTE | 2018-05-11 19:40 | NUR ---
RECEIVED PT AT THIS TIME FROM AM NURSE IN STABLE CONDITION.
[2018-05-11] MEDS: TAMSULOSIN 0.4 MG CAP PO SCH (20:13)
[2018-05-11] MEDS: rOPINIRole 0.25 MG TAB PO SCH (20:13)
[2018-05-11] MEDS ORDERED: FAMO20TA13 PO (21:38)
[2018-05-11] MEDS ORDERED: SIME80CT27 PO (21:38)
--- NOTE | 2018-05-11 22:01 | NUR ---
RECEIVED PT IN STABLE CONDITION FROM AM NURSE. AWAKE,ALERT AND ORIENTED X4. MED SURG PT. NO C/O OF ANY DISCOMFORT NOR PAIN NOTED AT THIS TIME. HAS IVF INFUSING WELL ON THE LT WRIST G#22. CLEAR AND PATENT. PLACED COMFORTABLY IN BED. CALL LIGHT PLACED WITHIN EASY REACH. BED ON LOWEST POSITION.BED ALARM ON. INSTRUCTED TO CALL IF NEED ASSISTANCE. VERBALIZED UNDERSTANDING. WILL CONTINUE TO MONITOR. Addendum: 05/11/18 at 2212 by Jacqueline Robledo RN TIME RECEIVED PT IS 1939 NOT 2212.
--- NOTE | 2018-05-11 23:00 | NUR ---
ASSISTED PT TO BATHROOM. TRIED TO HAVE A BM BUT NONE NOTED. ASSISTED BACK TO BED WITH NO PAIN NOTED.
[2018-05-12 00:08] VITALS: BP 106/52
--- NOTE | 2018-05-12 02:00 | NUR ---
MADE ROUNDS. PT ASLEEP. NO S/S DISCOMFORT NOTED.
[2018-05-12] MEDS: NACL 0.9% 1,000 ML IV SCH (02:13)
[2018-05-12 03:30] VITALS: BP 96/55
--- NOTE | 2018-05-12 04:00 | NUR ---
MADE ROUNDS. PT ASLEEP. NO PAIN NOR ANY DISCOMFORT NOTED. WILL CONTINUE TO MONITOR.
--- NOTE | 2018-05-12 06:00 | NUR ---
PT AWAKE. NO C/O ANY DISCOMFORT NOTED.
--- NOTE | 2018-05-12 07:20 | NUR ---
ENDORSED PT IN STABLE CONDITION TO AM NURSE.
[2018-05-12 07:32] LABS: ANION GAP 12.8 (8-16); CARBON DIOXIDE 24.6 mmol/L (21-32); CHLORIDE 109 mmol/L (98-107); CREATININE 1.9 mg/dL (0.7-1.3); GLUCOSE 94 mg/dL (74-106); POTASSIUM 4.4 mmol/L (3.5-5.1); SODIUM SERUM 142 mmol/L (136-145); UREA NITROGEN, BLOOD 27 mg/dL (7-18)
[2018-05-12 07:37] LABS: MAGNESIUM 2.1 mg/dL (1.8-2.4); PHOSPHORUS 3.9 mg/dL (2.5-4.9)
[2018-05-12 08:00] VITALS: BP 130/50
[2018-05-12 08:17] LABS: BASOPHILS % (AUTO) 0.2 % (0.0-2.0); EOSINOPHILS # (AUTO) 0.5 K/uL (0-0.4); EOSINOPHILS % (AUTO) 8.2 % (0.0-4.0); HEMATOCRIT 27.1 % (36-52); HEMOGLOBIN 9.1 g/dL (12.0-18.0); LYMPHOCYTES # (AUTO) 1.7 K/uL (2.0-11.5); LYMPHOCYTES % (AUTO) 25.9 % (20.5-51.1); MEAN CORPUSCULAR HEMOGLOBIN 34 pg (27-31); MEAN CORPUSCULAR HGB CONC 34 g/dL (33-37); MEAN CORPUSCULAR VOLUME 100.8 fL (80-94); MONOCYTES # (AUTO) 0.7 K/uL (0.8-1.0); MONOCYTES % (AUTO) 10.4 % (1.7-9.3); NEUTROPHILS # (AUTO) 3.6 K/uL (1.8-7.7); NEUTROPHILS % (AUTO) 55.3 % (42.2-75.2); PLATELET COUNT (AUTO) 230 K/uL (140-450); RED BLOOD CELL COUNT(AUTO) 2.69 MIL/uL (4.20-6.10); RED CELL DISTRIBUTION WIDTH 13.6 % (11.6-13.7); WHITE BLOOD COUNT (AUTO) 6.5 K/uL (4.8-10.8)
[2018-05-12] MEDS: CLOPIDOGREL 75 MG TAB PO SCH (09:03)
[2018-05-12] MEDS: ASPIRIN 81 MG TAB.CHEW PO SCH (09:04)
[2018-05-12] MEDS: CELECOXIB 100 MG CAP PO SCH (09:04)
[2018-05-12] MEDS: DOCUSATE SODIUM 100 MG GELCAP PO SCH (09:04)
[2018-05-12] MEDS: ASCORBIC ACID 500 MG TAB PO SCH (09:05)
[2018-05-12] MEDS: SIMETHICONE 80 MG TAB.CHEW PO SCH (09:05)
[2018-05-12] MEDS: LACTOBACILLUS RHAMNOSUS GG 1 EACH CAP PO SCH (09:05)
[2018-05-12] MEDS: FINASTERIDE 5 MG TAB PO SCH (09:06)
[2018-05-12] MEDS: FLUCONAZOLE 100 MG TAB PO SCH (09:06)
[2018-05-12] MEDS: METOCLOPRAMIDE 10 MG/10 ML SYRP UDC PO SCH (09:07)
--- NOTE | 2018-05-12 09:13 | NUR ---
ADMINISTERED MEDS TO PT ORDERED. PT ABLE TO TAKE MEDS PO EASILY, NO SIGN OF DISTRESS NOTED. ALL SAFETY MEASURE IN PLACE. WILL CONTINUE TO MONITOR PT.
[2018-05-12] MEDS: HYDROcodone/APAP 5/325 MG 1 TAB TAB PO PRN (09:15)
--- NOTE | 2018-05-12 10:06 | NUR ---
CM NOTE I FAXED DC ORDER FOR PHYSICAL THERAPY AND UPDATED CLINICAL PACKET INCLUDING DC SUMMARY TO [facility]. PER ALICIA OF [facility] PH# [phone], THE PATIENT CAN GO TODAY TO [address] LUND. I SPOKE WITH PATIENT'S SON ANNETTE STOKES PH# [phone] AND HE STATED THAT HE WANTS THE PATIENT TO GO BACK TO [facility] WHEN DISCHARGED AND THAT HE WILL PAY FOR [facility]. PER GODWIN OF [place] PH# [phone], THE PATIENT WILL BE PICKED UP AT 12:00 NOON TODAY TO GO TO [facility]. I GAVE [facility] THE NUMBER OF PATIENT'S SON ANNETTE FOR BILLING. BOSTON BARGER AWARE
[2018-05-12 11:26] VITALS: BP 130/50
--- NOTE | 2018-05-12 11:50 | NUR ---
REPORT GIVEN TO DENITA WISEMAN FROM [facility]. INFORMED HER THAT PT TO BE PICKED UP AT 1200 NOON BY [facility]. ASKED IF PT NEEDS TO BE SENT WITH FC. STATES TO CONFIRM WITH . TALKED TO . TALKED TO DR URBAN ABOUT DISCONTINUE FC IN PT BEFORE DISCHARGE. TO PUT DC ORDER. WAITING FOR THE ORDER.
--- NOTE | 2018-05-12 12:15 | NUR ---
CHANGED THE PT. DC FC PER DOCTORS ORDER.
--- NOTE | 2018-05-12 12:30 | NUR ---
PT DISCHARGED TO [facility] . DISCHARGE PACKET PROVIDED AND THE PRESCRIPTION PROVIDED WITH THE TRANSPORT PERSONNEL. PT SON KIKE BRYANT NOTIFIED THAT PT BEING DISCHARGED TO [facility] . VERBALIZED UNDERSTANDING. PT WAS TRANSFERRED FROM BED TO WHEEL CHAIR, DENIES ANY PAIN. PT TOLERATED WELL HIS TRANSFER FROM BED TO WHEEL CHAIR. PT STABLE AND FULL CODE AT TIME OF DISCHARGE. REPORT WAS GIVEN TO JEANNIE WISEMAN FROM [facility].
== END 2018-05-12 12:30 | DRG 682 ==
LOC: MED 23:36 → MTU 05-09 05:35
PROVIDERS: ADMIT General Practice; ATTEND General Practice
DX: N17.0 Acute kidney failure with tubular necrosis (principal); G93.41 Metabolic encephalopathy; N39.0 Urinary tract infection, site not specified; J98.11 Atelectasis; K21.9 Gastro-esophageal reflux disease without esophagitis; K31.84 Gastroparesis; G20 Parkinson's disease; F02.80 Dementia in other diseases classified elsewhere, unspecified severity, without behavioral disturbance, psychotic disturbance, mood disturbance, and anxiety; E78.5 Hyperlipidemia, unspecified; G89.4 Chronic pain syndrome; Z96.649 Presence of unspecified artificial hip joint; K56.41 Fecal impaction; M47.816 Spondylosis without myelopathy or radiculopathy, lumbar region; N28.1 Cyst of kidney, acquired; N31.9 Neuromuscular dysfunction of bladder, unspecified; B37.9 Candidiasis, unspecified; E87.8 Other disorders of electrolyte and fluid balance, not elsewhere classified; N40.1 Benign prostatic hyperplasia with lower urinary tract symptoms; R33.8 Other retention of urine; E66.9 Obesity, unspecified; Z68.30 Body mass index [BMI] 30.0-30.9, adult; I25.10 Atherosclerotic heart disease of native coronary artery without angina pectoris; I70.0 Atherosclerosis of aorta; N18.3 Chronic kidney disease, stage 3 (moderate); I12.9 Hypertensive chronic kidney disease with stage 1 through stage 4 chronic kidney disease, or unspecified chronic kidney disease; Z79.82 Long term (current) use of aspirin; Z79.899 Other long term (current) drug therapy; Z86.73 Personal history of transient ischemic attack (TIA), and cerebral infarction without residual deficits
CPT/HCPCS: 36415; 71045; 74018; 80048; 80053; 81001; 82150; 82272; 83036; 83690; 83735; 83880; 84100; 84443; 84484; 85025; 85610; 85730; 87040; 87081; 87086; 92610; 93005; 97116; 97530; 99285; J0696; J2270; J7030; J7060; J8597; Q0092

== ENCOUNTER 2018-06-21 22:16 | Emergency (ER) | payer OTHER ==
[~2018-06-21] VITALS: Ht 162.6 cm; Wt 67.1 kg
[~2018-06-21 22:16] MED LIST changes: -ACET-1182 PO; +ACET-2619 PO; -AMLO5TAB PO; +ASCO500T45 PO; -ATOR20TA PO; +BISA-213 RC; +CRAN450T5 PO; -ESOM40EC PO; +FAMO20TA13 PO; +HYDR-5122 PO; +MAGN400S60 PO; +NA P133N1 RC; +SIME80CT27 PO
[2018-06-21 22:17] VITALS: BP 121/51
--- NOTE | 2018-06-21 22:20 | NUR ---
JOSSIEA FROM [facility] FOR EVALUATION OF S/P FALL. PER EMS PT WAS TRYING TO GET OUT OF BED, FELT DIZZY AND FELL BACK INTO BED. PT C/O BL ARM PAIN. RADIAL PULSES WNL BL, NO REDNESS, SWELLING OR DEFORMITY NOTED TO SITES. CAP REFIL <3. PT STATES 5/10 PAIN VIA FLACC SCALE. STRONG HAND PAPER CONE MACHINE OPERATOR BL. PT IN GOWN, IN BED; BED IN LOWER LOCKED POSITION. PT PLACED ON CHIEF MEDICAL DIRECTOR. PENDING ER MD ZAPATA. WILL CONTINUE TO MONITOR. 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
--- NOTE | 2018-06-21 23:05 | NUR ---
WARM BLANKET AND COMFORT MEASURES PROVIDED TO PT.
--- NOTE | 2018-06-21 23:11 | NUR ---
CALL FROM [facility] W/ UPDATE, X-RAY RESULTS HAVE NOT BEEN READ YET. [facility] WILL CALL BACK IN 30 MIN.
--- NOTE | 2018-06-22 00:01 | NUR ---
PT ALERT OPENING AND CLOSING EYES, PT INFORMED THAT TRANSPORT ETA AT 0400. PT ACTING APPROPRIATLY.
--- NOTE | 2018-06-22 01:16 | NUR ---
PT SLEEPING, ALERT TO NAME AND STATES HE IS FEELING GOOD, BREATHING EQUAL AND UNLABORED. VSS. WILL CONTINUE TO MONITOR.
--- NOTE | 2018-06-22 01:47 | NUR ---
PT O2 SATURATION INTERMITTENTLY DROPS TO 90%, PT PLACED ON 2L NASAL CANNULA AT THIS TIME.
--- NOTE | 2018-06-22 02:18 | NUR ---
PT AMBULATED W/ ASSISTANCE TO BR, PT BACK IN BED POSITIONED FOR COMFORT. TAPPING MACHINE OPERATOR AUTOMATIC APPLIED. BED RAILS UP X2.
--- NOTE | 2018-06-22 04:29 | NUR ---
PT SLEEPING, BREATHING EQUAL AND UNLABORED. PT AROUSABLE TO VOICE. TRANSPORT ETA X1 HOUR. WILL CONTINUE TO MONITOR.
--- NOTE | 2018-06-22 05:21 | NUR ---
PT AMBULATED W/ ASSISTANCE TO BR, PT POSITIONED FOR COMFORT BACK IN BED. PT ON INSTRUCTOR FLYING. WILL CONTINUE TO MONITOR.
--- NOTE | 2018-06-22 06:39 | NUR ---
Patient discharged with v/s stable. Patient ambulated w/ assistance to wheelchair. Patient acting appropriatly. [facility] at bedside for transfer of patient back to [facility] facility. Written and verbal after care instructions given and explained. Patient verbalized understanding. All questions addressed prior to discharge. Advised to follow up with PMD.
[2018-06-22 06:55] VITALS: BP 138/47
== END 2018-06-22 06:39 ==
LOC: MED 22:16
DX: M25.512 Pain in left shoulder (principal); M25.511 Pain in right shoulder; R42 Dizziness and giddiness; G20 Parkinson's disease; F02.80 Dementia in other diseases classified elsewhere, unspecified severity, without behavioral disturbance, psychotic disturbance, mood disturbance, and anxiety; I10 Essential (primary) hypertension; Z79.82 Long term (current) use of aspirin; Z79.899 Other long term (current) drug therapy
CPT/HCPCS: 73030; 99283; Q0092

== ENCOUNTER 2018-08-25 11:28 | Emergency (ER) | payer OTHER ==
[~2018-08-25] VITALS: Ht 160 cm; Wt 65.8 kg
[~2018-08-25 11:28] MED LIST changes: -CLOP75TA55 PO
--- NOTE | 2018-08-25 11:30 | NUR ---
PATIENT BIBA TO BED 5 AT THIS TIME.
[2018-08-25 11:39] VITALS: BP 113/75
[2018-08-25] MEDS ORDERED: NACL 0.9% 1,000 ML IV ONE (11:50)
--- NOTE | 2018-08-25 11:54 | NUR ---
PT BIB AMBULANCE C/O HAVING SERIZURE 40 MINUTES AGO WHILE SITTING IN THE WHEELCHAIR. SEIZURE LASTS 10-15S AFTER PT WAS PUT ON OXYGEN. DENIES DRAUMA DURING THE SEIZURE EPISODE. DENIES HX OF SEIZURE. DENIES N/V/D; SKIN IS PINK/WARM/DRY; DENIES ANY FEVER, CP, SOB, OR COUGH AT THIS TIME; PATIENT STATES PAIN OF 4/10 AT THIS TIME; VSS; PATIENT POSITIONED FOR COMFORT; HOB ELEVATED; BEDRAILS UP X2; BED DOWN. SEIZURE PADS PLACED. ER MD MADE AWARE OF PT STATUS.
[2018-08-25 12:53] LABS: BASOPHILS % (AUTO) 0.4 % (0.0-2.0); EOSINOPHILS % (AUTO) 0.3 % (0.0-4.0); HEMATOCRIT 37.5 % (36-52); HEMOGLOBIN 12.4 g/dL (12.0-18.0); LYMPHOCYTES # (AUTO) 0.7 K/uL (2.0-11.5); LYMPHOCYTES % (AUTO) 8.3 % (20.5-51.1); MEAN CORPUSCULAR HEMOGLOBIN 32 pg (27-31); MEAN CORPUSCULAR HGB CONC 33 g/dL (33-37); MONOCYTES # (AUTO) 0.5 K/uL (0.8-1.0); MONOCYTES % (AUTO) 5.7 % (1.7-9.3); NEUTROPHILS # (AUTO) 7.5 K/uL (1.8-7.7); NEUTROPHILS % (AUTO) 85.3 % (42.2-75.2); PLATELET COUNT (AUTO) 253 K/uL (140-450); RED BLOOD CELL COUNT(AUTO) 3.83 MIL/uL (4.20-6.10); RED CELL DISTRIBUTION WIDTH 12.6 % (11.6-13.7); WHITE BLOOD COUNT (AUTO) 8.8 K/uL (4.8-10.8)
[2018-08-25 13:03] LABS: ANION GAP 14.2 (8-16); CARBON DIOXIDE 25.9 mmol/L (21-32); CHLORIDE 103 mmol/L (98-107); CREATININE 2.1 mg/dL (0.7-1.3); GLUCOSE 107 mg/dL (74-106); POTASSIUM 4.1 mmol/L (3.5-5.1); SODIUM SERUM 139 mmol/L (136-145); UREA NITROGEN, BLOOD 26 mg/dL (7-18)
[2018-08-25 13:04] LABS: APPEARANCE,URINE CLEAR (CLEAR); BILIRUBIN,URINE NEGATIVE (NEGATIVE); BLOOD, URINE NEGATIVE (NEGATIVE); COLOR,URINE YELLOW (YELLOW); LEUKOCYTE ESTERASE ,URINE NEGATIVE (NEGATIVE); NITRITE, URINE NEGATIVE (NEGATIVE); UGLUCOSE NEGATIVE (NEGATIVE)
[2018-08-25 13:08] LABS: ASPARTATE AMINOTRANSFERASE 21 U/L (15-37); LIPASE 183 U/L (73-393); TOTAL BILIRUBIN 0.3 mg/dL (0.0-1.0)
[2018-08-25 13:11] LABS: RBC,URINE 0-5 /HPF (0-5); WBC,URINE 0-5 /HPF (0-5)
--- NOTE | 2018-08-25 13:11 | NUR ---
PT IS SLEEPING IN BED AT THIS TIME.
--- NOTE | 2018-08-25 14:50 | NUR ---
CALLED [facility], FACILITY UNABLE TO PROVIDE TRANSPORTATION , [place] TO SET UP TRANSPORT FOR PT.
[2018-08-25 15:35] VITALS: BP 113/53
--- NOTE | 2018-08-25 15:35 | NUR ---
Patient discharged with v/s stable. Written and verbal after care instructions given and explained. Patient verbalized understanding. [facility]. All questions addressed prior to discharge. Advised to follow up with PMD.
== END 2018-08-25 15:35 ==
LOC: MED 11:28
DX: S00.83XA Contusion of other part of head, initial encounter (principal); G40.909 Epilepsy, unspecified, not intractable, without status epilepticus; G20 Parkinson's disease; F02.80 Dementia in other diseases classified elsewhere, unspecified severity, without behavioral disturbance, psychotic disturbance, mood disturbance, and anxiety; K21.9 Gastro-esophageal reflux disease without esophagitis; I10 Essential (primary) hypertension; Z79.82 Long term (current) use of aspirin; Z79.1 Long term (current) use of non-steroidal anti-inflammatories (NSAID); Z79.899 Other long term (current) drug therapy; X58.XXXA Exposure to other specified factors, initial encounter; Y93.89 Activity, other specified; Y92.89 Other specified places as the place of occurrence of the external cause; Y99.8 Other external cause status
CPT/HCPCS: 36415; 70450; 71045; 80053; 81001; 82948; 83690; 85025; 93005; 99284; J7030; Q0092

== ENCOUNTER 2018-11-21 14:23 | Inpatient (IN) | payer OTHER ==
[~2018-11-21] VITALS: Ht 165.1 cm; Wt 60.3 kg
[2018-11-21 14:30] VITALS: BP 86/41
[2018-11-21] MEDS ORDERED: NACL 0.9% 1,000 ML IV ONE (14:38)
[2018-11-21] MEDS ORDERED: DOCU-299 PO (15:48)
[2018-11-21] MEDS ORDERED: [UNRECOGNIZED DRUG - OTHER] PO (15:48)
[2018-11-21] MEDS ORDERED: HYDR-5122 PO (15:48)
[2018-11-21 16:18] LABS: BASOPHILS % (AUTO) 0.3 % (0.0-2.0); EOSINOPHILS % (AUTO) 0.2 % (0.0-4.0); HEMATOCRIT 25.9 % (36-52); HEMOGLOBIN 8.3 g/dL (12.0-18.0); LYMPHOCYTES # (AUTO) 0.8 K/uL (2.0-11.5); MEAN CORPUSCULAR HEMOGLOBIN 31 pg (27-31); MEAN CORPUSCULAR HGB CONC 32 g/dL (33-37); MEAN CORPUSCULAR VOLUME 97.5 fL (80-94); MONOCYTES % (AUTO) 7.5 % (1.7-9.3); NEUTROPHILS # (AUTO) 11.6 K/uL (1.8-7.7); PLATELET COUNT (AUTO) 262 K/uL (140-450); RED BLOOD CELL COUNT(AUTO) 2.66 MIL/uL (4.20-6.10); RED CELL DISTRIBUTION WIDTH 13.4 % (11.6-13.7); WHITE BLOOD COUNT (AUTO) 13.5 K/uL (4.8-10.8)
[2018-11-21 17:16] LABS: ALBUMIN 1.5 g/dL (3.4-5.0); ANION GAP 11.4 (8-16); ASPARTATE AMINOTRANSFERASE 20 U/L (15-37); CARBON DIOXIDE 23.2 mmol/L (21-32); CHLORIDE 106 mmol/L (98-107); CREATININE 2.2 mg/dL (0.7-1.3); GLUCOSE 134 mg/dL (74-106); LIPASE 68 U/L (73-393); POTASSIUM 4.6 mmol/L (3.5-5.1); SODIUM SERUM 136 mmol/L (136-145); TOTAL BILIRUBIN 0.1 mg/dL (0.0-1.0); UREA NITROGEN, BLOOD 51 mg/dL (7-18)
[2018-11-21 17:22] LABS: APPEARANCE,URINE HAZY (CLEAR); BILIRUBIN,URINE NEGATIVE (NEGATIVE); BLOOD, URINE 1+ (NEGATIVE); COLOR,URINE YELLOW (YELLOW); LEUKOCYTE ESTERASE ,URINE NEGATIVE (NEGATIVE); NITRITE, URINE NEGATIVE (NEGATIVE); UGLUCOSE NEGATIVE (NEGATIVE)
[2018-11-21 17:28] LABS: RBC,URINE 0-5 /HPF (0-5); WBC,URINE 0-5 /HPF (0-5)
[2018-11-21] MEDS ORDERED: ONDANSETRON 4 MG/2 ML VIAL IM/IVP PRN (18:00)
[2018-11-21] MEDS ORDERED: DOCUSATE SODIUM 100 MG GELCAP PO PRN (18:00)
[2018-11-21] MEDS ORDERED: ACETAMINOPHEN 325 MG TAB PO PRN (18:00)
[2018-11-21] MEDS ORDERED: NITROGLYCERIN 0.4 MG TAB SL PRN (18:40)
[2018-11-21] MEDS: NACL 0.9% 1,000 ML IV SCH (18:52)
[2018-11-21] MEDS ORDERED: ALBUTEROL SULFATE/IPRATROPIU 3 ML SOL IH PRN (19:15)
[2018-11-21] MEDS ORDERED: NON-FORMULARY ITEM (Famotidine 20 MG) PO SCH (19:40)
[2018-11-21 19:56] LABS: MAGNESIUM 2.1 mg/dL (1.8-2.4); PHOSPHORUS 3.8 mg/dL (2.5-4.9); THYROID STIMULATING HORMONE 0.56 uIU/mL (0.34-3.74)
[2018-11-21 20:00] VITALS: BP 90/43
[2018-11-21] MEDS: METOPROLOL 25 MG TAB PO SCH (21:00)
[2018-11-21] MEDS: rOPINIRole 0.25 MG TAB PO SCH (21:00)
[2018-11-21] MEDS: PANTOPRAZOLE 40 MG INJ VIAL IVP SCH (22:02)
[2018-11-21] MEDS: TAMSULOSIN 0.4 MG CAP PO SCH (22:02)
[2018-11-21] MEDS: DOCUSATE SODIUM 100 MG GELCAP PO SCH (22:02)
[2018-11-21] MEDS: ATORVASTATIN 20 MG TAB PO SCH (22:03)
[2018-11-22] VITALS: BP 118/55
[2018-11-22] MEDS ORDERED: PIPERACILLIN/TAZOBACTAM 2.25 GM VIAL IV ONE ×2 (00:29→03:58)
[2018-11-22] MEDS ORDERED: HYDROcodone/APAP 5/325 MG 1 TAB TAB PO PRN (00:35)
[2018-11-22] MEDS: PIPERACILLIN/TAZOBACTAM 2.25 GM in DEXTROSE 5% 50 ML IV SCH ×4 (00:36→23:17)
[2018-11-22] MEDS ORDERED: LORazepam 2 MG/ML VIAL IVP SCH (00:45)
[2018-11-22] MEDS ORDERED: SODIUM FERRIC GLUCONATE 125 MG in NACL 0.9% 100 ML IV SCH ×2 (03:55→09:00)
[2018-11-22 04:00] VITALS: BP 92/46
[2018-11-22] MEDS: ALBUTEROL SULFATE/IPRATROPIU 3 ML SOL IH SCH ×3 (07:11→18:55)
[2018-11-22] MEDS ORDERED: SIMETHICONE 80 MG TAB.CHEW PO PRN (07:25)
[2018-11-22 07:31] LABS: BASOPHILS % (AUTO) 0.2 % (0.0-2.0); EOSINOPHILS # (AUTO) 0.3 K/uL (0-0.4); LYMPHOCYTES # (AUTO) 1.7 K/uL (2.0-11.5); LYMPHOCYTES % (AUTO) 11.1 % (20.5-51.1); MEAN CORPUSCULAR HEMOGLOBIN 31 pg (27-31); MEAN CORPUSCULAR HGB CONC 32 g/dL (33-37); MEAN CORPUSCULAR VOLUME 97.4 fL (80-94); MONOCYTES # (AUTO) 1.1 K/uL (0.8-1.0); MONOCYTES % (AUTO) 6.7 % (1.7-9.3); NEUTROPHILS # (AUTO) 12.6 K/uL (1.8-7.7); PLATELET COUNT (AUTO) 321 K/uL (140-450); RED BLOOD CELL COUNT(AUTO) 2.16 MIL/uL (4.20-6.10); RED CELL DISTRIBUTION WIDTH 13.5 % (11.6-13.7); WHITE BLOOD COUNT (AUTO) 15.7 K/uL (4.8-10.8)
[2018-11-22 07:52] LABS: HEMOGLOBIN 6.8 g/dL (12.0-18.0)
[2018-11-22 08:00] VITALS: BP 102/43
[2018-11-22] MEDS: FERROUS SULFATE 325 MG TABEC PO SCH (08:00)
[2018-11-22] MEDS ORDERED: BISACODYL 10 MG SUPP RC SCH (08:00)
[2018-11-22 08:16] LABS: ANION GAP 11.9 (8-16); CARBON DIOXIDE 23.6 mmol/L (21-32); CHLORIDE 108 mmol/L (98-107); CREATININE 1.9 mg/dL (0.7-1.3); GLUCOSE 109 mg/dL (74-106); POTASSIUM 4.5 mmol/L (3.5-5.1); SODIUM SERUM 139 mmol/L (136-145); UREA NITROGEN, BLOOD 51 mg/dL (7-18)
[2018-11-22 08:19] LABS: CHOL/HDL RATIO 4.5 (1-4.5); MAGNESIUM 2.3 mg/dL (1.8-2.4); PHOSPHORUS 3.1 mg/dL (2.5-4.9)
[2018-11-22] MEDS: PANTOPRAZOLE 40 MG INJ VIAL IVP SCH ×2 (08:34→21:14)
[2018-11-22] MEDS ORDERED: diphenhydrAMINE 50 MG/ML VIAL ONE (08:40)
[2018-11-22] MEDS ORDERED: MIDAZOLAM 2 MG/2 ML VIAL ONE (08:40)
[2018-11-22] MEDS ORDERED: fentaNYL 0.05 MG/ML VIAL ONE (08:40)
[2018-11-22] MEDS: LACTOBACILLUS RHAMNOSUS GG 1 EACH CAP PO SCH (09:00)
[2018-11-22] MEDS ORDERED: NON-FORMULARY ITEM (Simethicone 80 MG) PO SCH (09:00)
[2018-11-22] MEDS: DOCUSATE SODIUM 100 MG GELCAP PO SCH ×2 (09:00→21:16)
[2018-11-22] MEDS ORDERED: ASPIRIN 81 MG TAB.CHEW PO SCH (09:00)
[2018-11-22] MEDS: METOPROLOL 25 MG TAB PO SCH ×2 (09:00→21:17)
[2018-11-22] MEDS ORDERED: ASCORBIC ACID 500 MG TAB PO SCH (09:00)
[2018-11-22] MEDS ORDERED: LISINOPRIL 5 MG TAB PO SCH (09:00)
[2018-11-22] MEDS ORDERED: MAGNESIUM CITRATE 300 ML BTL PO SCH (10:00)
[2018-11-22] MEDS ORDERED: fentaNYL 0.05 MG/ML VIAL IVP ONE (10:20)
[2018-11-22] MEDS ORDERED: diphenhydrAMINE 50 MG/ML VIAL IVP ONE (10:20)
[2018-11-22] MEDS ORDERED: MIDAZOLAM 2 MG/2 ML VIAL IVP ONE (10:20)
[2018-11-22] MEDS: NACL 0.9% 1,000 ML IV SCH ×2 (10:36→20:19)
[2018-11-22 12:00] VITALS: BP 93/45
[2018-11-22] MEDS: SENNA 8.6 MG TAB PO SCH ×2 (13:33→17:34)
[2018-11-22] MEDS: FINASTERIDE 5 MG TAB PO SCH (13:33)
[2018-11-22] MEDS ORDERED: LORATADINE 10 MG TAB PO ONE (14:55)
[2018-11-22 16:00] VITALS: BP 122/59
[2018-11-22] MEDS: ACETAMINOPHEN 325 MG TAB PO SCH ×4 (16:00→23:43)
[2018-11-22 16:41] LABS: APPEARANCE,URINE CLEAR (CLEAR); BILIRUBIN,URINE NEGATIVE (NEGATIVE); BLOOD, URINE 1+ (NEGATIVE); LEUKOCYTE ESTERASE ,URINE NEGATIVE (NEGATIVE); NITRITE, URINE NEGATIVE (NEGATIVE); UGLUCOSE NEGATIVE (NEGATIVE)
[2018-11-22 16:44] LABS: COLOR,URINE STRAW (YELLOW)
[2018-11-22 16:47] LABS: RBC,URINE NONE SEEN /HPF (0-5); WBC,URINE NONE SEEN /HPF (0-5)
[2018-11-22] MEDS ORDERED: diphenhydrAMINE 50 MG/ML VIAL IVP SCH (19:00)
[2018-11-22 20:00] VITALS: BP 118/57
[2018-11-22 20:16] LABS: BASOPHILS % (AUTO) 0.3 % (0.0-2.0); EOSINOPHILS # (AUTO) 0.1 K/uL (0-0.4); EOSINOPHILS % (AUTO) 0.9 % (0.0-4.0); HEMATOCRIT 21.5 % (36-52); LYMPHOCYTES # (AUTO) 1.5 K/uL (2.0-11.5); LYMPHOCYTES % (AUTO) 10.3 % (20.5-51.1); MEAN CORPUSCULAR HEMOGLOBIN 31 pg (27-31); MEAN CORPUSCULAR HGB CONC 32 g/dL (33-37); MEAN CORPUSCULAR VOLUME 97.6 fL (80-94); MONOCYTES # (AUTO) 0.9 K/uL (0.8-1.0); MONOCYTES % (AUTO) 6.1 % (1.7-9.3); NEUTROPHILS # (AUTO) 12.3 K/uL (1.8-7.7); NEUTROPHILS % (AUTO) 82.4 % (42.2-75.2); PLATELET COUNT (AUTO) 320 K/uL (140-450); RED CELL DISTRIBUTION WIDTH 13.7 % (11.6-13.7); WHITE BLOOD COUNT (AUTO) 14.9 K/uL (4.8-10.8)
[2018-11-22 20:31] LABS: HEMOGLOBIN 6.8 g/dL (12.0-18.0)
[2018-11-22] MEDS: TAMSULOSIN 0.4 MG CAP PO SCH (21:15)
[2018-11-22] MEDS: LACTULOSE 20 GM/30 ML UDC PO SCH (21:15)
[2018-11-22] MEDS: ATORVASTATIN 20 MG TAB PO SCH (21:16)
[2018-11-22] MEDS: rOPINIRole 0.25 MG TAB PO SCH (21:34)
[2018-11-22] MEDS ORDERED: LORazepam 2 MG/ML VIAL IVP ONE (23:35)
[2018-11-23] VITALS: BP 102/49
[2018-11-23 04:00] VITALS: BP 119/48
[2018-11-23] MEDS: NACL 0.9% 1,000 ML IV SCH (05:04)
[2018-11-23] MEDS: ALBUTEROL SULFATE/IPRATROPIU 3 ML SOL IH SCH ×3 (06:45→20:40)
[2018-11-23] MEDS: PIPERACILLIN/TAZOBACTAM 2.25 GM in DEXTROSE 5% 50 ML IV SCH ×3 (06:46→23:03)
[2018-11-23 08:00] VITALS: BP 96/48
[2018-11-23] MEDS: METOPROLOL 25 MG TAB PO SCH ×2 (09:00→21:48)
[2018-11-23] MEDS: DOCUSATE SODIUM 100 MG GELCAP PO SCH ×2 (09:04→21:47)
[2018-11-23] MEDS: LACTOBACILLUS RHAMNOSUS GG 1 EACH CAP PO SCH (09:04)
[2018-11-23] MEDS: SENNA 8.6 MG TAB PO SCH ×3 (09:05→18:37)
[2018-11-23] MEDS: FINASTERIDE 5 MG TAB PO SCH (09:05)
[2018-11-23] MEDS: FERROUS SULFATE 325 MG TABEC PO SCH (09:05)
[2018-11-23] MEDS: PANTOPRAZOLE 40 MG INJ VIAL IVP SCH ×2 (09:07→21:46)
[2018-11-23] MEDS: LACTULOSE 20 GM/30 ML UDC PO SCH ×2 (09:07→21:46)
[2018-11-23 11:24] LABS: BASOPHILS % (AUTO) 0.2 % (0.0-2.0); EOSINOPHILS # (AUTO) 0.2 K/uL (0-0.4); EOSINOPHILS % (AUTO) 1.8 % (0.0-4.0); HEMOGLOBIN 7.8 g/dL (12.0-18.0); LYMPHOCYTES # (AUTO) 1.3 K/uL (2.0-11.5); LYMPHOCYTES % (AUTO) 9.3 % (20.5-51.1); MEAN CORPUSCULAR HEMOGLOBIN 30 pg (27-31); MEAN CORPUSCULAR HGB CONC 32 g/dL (33-37); MEAN CORPUSCULAR VOLUME 93.6 fL (80-94); MONOCYTES % (AUTO) 7.4 % (1.7-9.3); NEUTROPHILS # (AUTO) 11.1 K/uL (1.8-7.7); NEUTROPHILS % (AUTO) 81.3 % (42.2-75.2); PLATELET COUNT (AUTO) 333 K/uL (140-450); RED BLOOD CELL COUNT(AUTO) 2.57 MIL/uL (4.20-6.10); RED CELL DISTRIBUTION WIDTH 16.2 % (11.6-13.7); WHITE BLOOD COUNT (AUTO) 13.7 K/uL (4.8-10.8)
[2018-11-23 11:32] LABS: ANION GAP 15.3 (8-16); CARBON DIOXIDE 22.9 mmol/L (21-32); CHLORIDE 107 mmol/L (98-107); CREATININE 1.8 mg/dL (0.7-1.3); GLUCOSE 114 mg/dL (74-106); POTASSIUM 4.2 mmol/L (3.5-5.1); SODIUM SERUM 141 mmol/L (136-145); UREA NITROGEN, BLOOD 33 mg/dL (7-18)
[2018-11-23 12:00] VITALS: BP 98/46
[2018-11-23] MEDS ORDERED: HEPARIN PER PHARMACY MC PRN (13:00)
[2018-11-23] MEDS ORDERED: hePARIN / DEXT 5% PREMIX 250 ML IV SCH (13:00)
[2018-11-23 13:39] LABS: PROTHROMBIN TIME 9.8 secs (10.8-13.4)
[2018-11-23 15:06] LABS: FOLIC ACID 3.2 ng/mL (>3.0)
[2018-11-23] MEDS ORDERED: HYDROcodone/APAP 5/325 MG 1 TAB TAB PO PRN (15:29)
[2018-11-23 15:46] LABS: MAGNESIUM 2.4 mg/dL (1.8-2.4)
[2018-11-23] MEDS: hePARIN / DEXT 5% PREMIX 250 ML IV SCH (15:57)
[2018-11-23 16:00] VITALS: BP 94/44
[2018-11-23 20:00] VITALS: BP 117/55
[2018-11-23 21:21] LABS: BASOPHILS % (AUTO) 0.1 % (0.0-2.0); EOSINOPHILS # (AUTO) 0.2 K/uL (0-0.4); EOSINOPHILS % (AUTO) 1.3 % (0.0-4.0); HEMATOCRIT 27.3 % (36-52); HEMOGLOBIN 8.7 g/dL (12.0-18.0); LYMPHOCYTES # (AUTO) 1.5 K/uL (2.0-11.5); LYMPHOCYTES % (AUTO) 11.8 % (20.5-51.1); MEAN CORPUSCULAR HEMOGLOBIN 30 pg (27-31); MEAN CORPUSCULAR HGB CONC 32 g/dL (33-37); MEAN CORPUSCULAR VOLUME 94.3 fL (80-94); MONOCYTES # (AUTO) 0.8 K/uL (0.8-1.0); MONOCYTES % (AUTO) 6.5 % (1.7-9.3); NEUTROPHILS # (AUTO) 10.3 K/uL (1.8-7.7); NEUTROPHILS % (AUTO) 80.3 % (42.2-75.2); PLATELET COUNT (AUTO) 373 K/uL (140-450); RED BLOOD CELL COUNT(AUTO) 2.89 MIL/uL (4.20-6.10); RED CELL DISTRIBUTION WIDTH 16.4 % (11.6-13.7); WHITE BLOOD COUNT (AUTO) 12.8 K/uL (4.8-10.8)
[2018-11-23] MEDS: TAMSULOSIN 0.4 MG CAP PO SCH (21:47)
[2018-11-23] MEDS: ATORVASTATIN 20 MG TAB PO SCH (21:47)
[2018-11-23] MEDS: rOPINIRole 0.25 MG TAB PO SCH (21:48)
[2018-11-24] VITALS (29 sets, daily range): BP systolic 58–147; BP diastolic 18–78
[2018-11-24] MEDS: hePARIN / DEXT 5% PREMIX 250 ML IV SCH (01:04)
[2018-11-24] MEDS: NACL 0.9% 1,000 ML IV SCH (02:49)
[2018-11-24] MEDS: PIPERACILLIN/TAZOBACTAM 2.25 GM in DEXTROSE 5% 50 ML IV SCH ×3 (06:33→15:12)
[2018-11-24] MEDS: ALBUTEROL SULFATE/IPRATROPIU 3 ML SOL IH SCH ×3 (08:24→19:00)
[2018-11-24 08:57] LABS: BASOPHILS % (AUTO) 0.2 % (0.0-2.0); EOSINOPHILS # (AUTO) 0.3 K/uL (0-0.4); HEMOGLOBIN 8.4 g/dL (12.0-18.0); LYMPHOCYTES % (AUTO) 14.2 % (20.5-51.1); MEAN CORPUSCULAR HEMOGLOBIN 30 pg (27-31); MEAN CORPUSCULAR HGB CONC 32 g/dL (33-37); MEAN CORPUSCULAR VOLUME 94.2 fL (80-94); MONOCYTES % (AUTO) 7.6 % (1.7-9.3); NEUTROPHILS # (AUTO) 10.5 K/uL (1.8-7.7); PLATELET COUNT (AUTO) 375 K/uL (140-450); RED BLOOD CELL COUNT(AUTO) 2.76 MIL/uL (4.20-6.10); RED CELL DISTRIBUTION WIDTH 16.1 % (11.6-13.7); WHITE BLOOD COUNT (AUTO) 13.8 K/uL (4.8-10.8)
[2018-11-24] MEDS: DOCUSATE SODIUM 100 MG GELCAP PO SCH ×2 (08:58→21:00)
[2018-11-24] MEDS: FERROUS SULFATE 325 MG TABEC PO SCH (08:58)
[2018-11-24] MEDS: LACTULOSE 20 GM/30 ML UDC PO SCH ×2 (08:58→21:00)
[2018-11-24] MEDS: SENNA 8.6 MG TAB PO SCH ×2 (08:59→12:33)
[2018-11-24] MEDS: LACTOBACILLUS RHAMNOSUS GG 1 EACH CAP PO SCH (08:59)
[2018-11-24] MEDS: FINASTERIDE 5 MG TAB PO SCH (08:59)
[2018-11-24] MEDS: METOPROLOL 25 MG TAB PO SCH ×2 (09:00→21:00)
[2018-11-24] MEDS: PANTOPRAZOLE 40 MG INJ VIAL IVP SCH (09:01)
[2018-11-24 09:12] LABS: ANION GAP 13.3 (8-16); CARBON DIOXIDE 24.7 mmol/L (21-32); CHLORIDE 108 mmol/L (98-107); CREATININE 1.7 mg/dL (0.7-1.3); GLUCOSE 119 mg/dL (74-106); SODIUM SERUM 141 mmol/L (136-145); UREA NITROGEN, BLOOD 23 mg/dL (7-18)
[2018-11-24 09:56] LABS: MAGNESIUM 2.3 mg/dL (1.8-2.4); PHOSPHORUS 2.9 mg/dL (2.5-4.9)
[2018-11-24] MEDS: MORPHINE SULFATE 2 MG/ML SYR IVP PRN (15:12)
[2018-11-24 17:14] LABS: BASOPHILS % (AUTO) 0.3 % (0.0-2.0); EOSINOPHILS # (AUTO) 0.2 K/uL (0-0.4); EOSINOPHILS % (AUTO) 0.9 % (0.0-4.0); HEMATOCRIT 26.3 % (36-52); HEMOGLOBIN 8.3 g/dL (12.0-18.0); LYMPHOCYTES # (AUTO) 2.6 K/uL (2.0-11.5); LYMPHOCYTES % (AUTO) 14.8 % (20.5-51.1); MEAN CORPUSCULAR HEMOGLOBIN 30 pg (27-31); MEAN CORPUSCULAR HGB CONC 32 g/dL (33-37); MEAN CORPUSCULAR VOLUME 95.7 fL (80-94); MONOCYTES % (AUTO) 5.6 % (1.7-9.3); NEUTROPHILS # (AUTO) 13.9 K/uL (1.8-7.7); NEUTROPHILS % (AUTO) 78.4 % (42.2-75.2); PLATELET COUNT (AUTO) 446 K/uL (140-450); RED BLOOD CELL COUNT(AUTO) 2.75 MIL/uL (4.20-6.10); RED CELL DISTRIBUTION WIDTH 16.2 % (11.6-13.7); WHITE BLOOD COUNT (AUTO) 17.8 K/uL (4.8-10.8)
[2018-11-24] MEDS ORDERED: NACL 0.9% 1,000 ML IV SCH (17:20)
[2018-11-24] MEDS: DOPamine 400 MG/D5W PREMIX 250 ML IV SCH ×2 (18:07→23:57)
[2018-11-24] MEDS ORDERED: LORazepam 2 MG/ML VIAL IVP SCH (19:00)
[2018-11-24] MEDS ORDERED: ATOR20TA40 PO (19:45)
[2018-11-24] MEDS ORDERED: NOREPINEPHRINE 4 MG in DEXTROSE 5% 250 ML IV PRN (20:35)
[2018-11-24] MEDS ORDERED: NOREPINEPHRINE 4 MG/4 ML VIAL IV ONE (20:40)
[2018-11-24] MEDS ORDERED: MIDAZOLAM 2 MG/2 ML VIAL ONE (20:41)
[2018-11-24] MEDS ORDERED: MIDAZOLAM 2 MG/2 ML VIAL IV SCH (20:50)
[2018-11-24] MEDS: ATORVASTATIN 20 MG TAB PO SCH (21:00)
[2018-11-24] MEDS: rOPINIRole 0.25 MG TAB PO SCH (21:00)
[2018-11-25] VITALS (57 sets, daily range): BP systolic 55–137; BP diastolic 23–91
[2018-11-25] MEDS ORDERED: PIPERACILLIN/TAZOBACTAM 2.25 GM VIAL IV ONE (00:11)
[2018-11-25] MEDS ORDERED: TERBUTALINE 1 MG/ML VIAL SUBQ SCH (00:50)
[2018-11-25] MEDS ORDERED: TERBUTALINE 1 MG/ML VIAL SUBQ ONE (01:35)
[2018-11-25] MEDS ORDERED: MORPHINE SULFATE 2 MG/ML SYR IVP SCH (01:40)
[2018-11-25] MEDS ORDERED: LORazepam 2 MG/ML VIAL ONE (02:03)
[2018-11-25] MEDS ORDERED: LORazepam 2 MG/ML VIAL IVP SCH ×2 (02:05→10:10)
[2018-11-25] MEDS ORDERED: PANTOPRAZOLE 40 MG TABEC PO SCH (06:30)
[2018-11-25] MEDS: PIPERACILLIN/TAZOBACTAM 2.25 GM in DEXTROSE 5% 50 ML IV SCH (07:00)
[2018-11-25 07:21] LABS: HEMATOCRIT 28.4 % (36-52); HEMOGLOBIN 8.7 g/dL (12.0-18.0); MEAN CORPUSCULAR HEMOGLOBIN 30 pg (27-31); MEAN CORPUSCULAR HGB CONC 31 g/dL (33-37); MEAN CORPUSCULAR VOLUME 98.3 fL (80-94); PLATELET COUNT (AUTO) 275 K/uL (140-450); RED BLOOD CELL COUNT(AUTO) 2.89 MIL/uL (4.20-6.10); RED CELL DISTRIBUTION WIDTH 16.4 % (11.6-13.7); WHITE BLOOD COUNT (AUTO) 24.5 K/uL (4.8-10.8)
[2018-11-25] MEDS: DOPamine 400 MG/D5W PREMIX 250 ML IV SCH (07:47)
[2018-11-25] MEDS: FERROUS SULFATE 325 MG TABEC PO SCH (08:00)
[2018-11-25 08:06] LABS: MAGNESIUM 2.4 mg/dL (1.8-2.4); PHOSPHORUS 5.9 mg/dL (2.5-4.9)
[2018-11-25] MEDS: LACTOBACILLUS RHAMNOSUS GG 1 EACH CAP PO SCH (08:07)
[2018-11-25] MEDS: LACTULOSE 20 GM/30 ML UDC PO SCH (08:07)
[2018-11-25] MEDS: DOCUSATE SODIUM 100 MG GELCAP PO SCH (08:07)
[2018-11-25] MEDS: METOPROLOL 25 MG TAB PO SCH (08:08)
[2018-11-25 08:45] LABS: LYMPHOCYTES % (MANUAL) 5 % (20-46); MONOCYTES % (MANUAL) 5 % (5-12)
[2018-11-25] MEDS: MORPHINE SULFATE 2 MG/ML SYR IVP PRN (08:45)
[2018-11-25] MEDS ORDERED: SENNA 8.6 MG TAB PO SCH (09:00)
[2018-11-25 09:07] LABS: ANION GAP 30.2 (8-16); CHLORIDE 107 mmol/L (98-107); CREATININE 2.5 mg/dL (0.7-1.3); GLUCOSE 137 mg/dL (74-106); SODIUM SERUM 141 mmol/L (136-145); UREA NITROGEN, BLOOD 30 mg/dL (7-18)
[2018-11-25 09:22] LABS: POTASSIUM 6.1 mmol/L (3.5-5.1)
[2018-11-25 09:23] LABS: CARBON DIOXIDE 9.9 mmol/L (21-32)
[2018-11-25] MEDS ORDERED: ALBUTEROL SULFATE/IPRATROPIU 3 ML SOL IH PRN (09:55)
[2018-11-25] MEDS ORDERED: SODIUM BICARBONATE 8.4% 50 MEQ in DEXTROSE 5% 1,000 ML IV SCH (10:15)
[2018-11-25] MEDS ORDERED: CALCIUM CHLORIDE 10% 100 MG/ML SYR IVP ONE (10:15)
[2018-11-25] MEDS ORDERED: CALCIUM GLUCONATE 10% 1000 MG/10 ML VIAL IV SCH (10:40)
[2018-11-25] MEDS ORDERED: DEXTROSE 50% 50 ML SYR IVP SCH (10:40)
[2018-11-25] MEDS ORDERED: INSULIN REGULAR, HUMAN 100 UNIT/ML VIAL SUBQ SCH (10:40)
[2018-11-25] MEDS ORDERED: SODIUM BICARBONATE 8.4% PFS 50 MEQ/50 ML SYR IVP SCH ×2 (10:40→13:00)
[2018-11-25 13:00] LABS: ANION GAP 23.1 (8-16); CARBON DIOXIDE 13.9 mmol/L (21-32); CHLORIDE 108 mmol/L (98-107); CREATININE 2.9 mg/dL (0.7-1.3); GLUCOSE 248 mg/dL (74-106); SODIUM SERUM 139 mmol/L (136-145); UREA NITROGEN, BLOOD 34 mg/dL (7-18)
[2018-11-25] MEDS ORDERED: PROPOFOL 1000 MG/100 ML PREMIX 100 ML IV PRN (13:10)
[2018-11-25] MEDS ORDERED: PHENYLEPHRINE 40 MG in NACL 0.9% 250 ML IV PRN (13:15)
[2018-11-25] MEDS ORDERED: NOREPINEPHRINE 16 MG in DEXTROSE 5% 250 ML IV PRN (13:30)
[2018-11-25] MEDS ORDERED: VANCOMYCIN PER PHARMACY MC PRN (14:05)
== END 2018-11-25 13:35 | disposition expired | DRG 871 ==
LOC: MED 14:23 → MMU 18:03 → MIC 11-24 16:54
PROVIDERS: ADMIT General Practice; ATTEND General Practice
PROC: 0DB68ZX Excision of Stomach, Via Natural or Artificial Opening Endoscopic, Diagnostic (ICD-10-PCS; 2018-11-22)
PROC: 0W3P8ZZ Control Bleeding in Gastrointestinal Tract, Via Natural or Artificial Opening Endoscopic (ICD-10-PCS; 2018-11-22)
PROC: 30233N1 Transfusion of Nonautologous Red Blood Cells into Peripheral Vein, Percutaneous Approach (ICD-10-PCS; principal; 2018-11-22 10:45)
PROC: 5A12012 Performance of Cardiac Output, Single, Manual (ICD-10-PCS; 2018-11-24)
PROC: 06HY33Z Insertion of Infusion Device into Lower Vein, Percutaneous Approach (ICD-10-PCS; 2018-11-24)
PROC: 02HV33Z Insertion of Infusion Device into Superior Vena Cava, Percutaneous Approach (ICD-10-PCS; 2018-11-25)
PROC: B548ZZA Ultrasonography of Superior Vena Cava, Guidance (ICD-10-PCS; 2018-11-25)
PROC: 5A1935Z Respiratory Ventilation, Less than 24 Consecutive Hours (ICD-10-PCS; 2018-11-25)
PROC: 0BH17EZ Insertion of Endotracheal Airway into Trachea, Via Natural or Artificial Opening (ICD-10-PCS; 2018-11-25)
DX: A41.9 Sepsis, unspecified organism (principal); J69.0 Pneumonitis due to inhalation of food and vomit; N17.0 Acute kidney failure with tubular necrosis; E43 Unspecified severe protein-calorie malnutrition; I21.19 ST elevation (STEMI) myocardial infarction involving other coronary artery of inferior wall; K25.4 Chronic or unspecified gastric ulcer with hemorrhage; D68.9 Coagulation defect, unspecified; E87.2 Acidosis; I44.2 Atrioventricular block, complete; D62 Acute posthemorrhagic anemia; E78.5 Hyperlipidemia, unspecified; E87.5 Hyperkalemia; F02.80 Dementia in other diseases classified elsewhere, unspecified severity, without behavioral disturbance, psychotic disturbance, mood disturbance, and anxiety; G20 Parkinson's disease; G89.4 Chronic pain syndrome; I12.9 Hypertensive chronic kidney disease with stage 1 through stage 4 chronic kidney disease, or unspecified chronic kidney disease; K21.9 Gastro-esophageal reflux disease without esophagitis; K59.09 Other constipation; N18.9 Chronic kidney disease, unspecified; N40.0 Benign prostatic hyperplasia without lower urinary tract symptoms; Z96.649 Presence of unspecified artificial hip joint; Z96.659 Presence of unspecified artificial knee joint; I46.9 Cardiac arrest, cause unspecified; Z68.25 Body mass index [BMI] 25.0-25.9, adult; Z86.73 Personal history of transient ischemic attack (TIA), and cerebral infarction without residual deficits
CPT/HCPCS: 36415; 36600; 71045; 74018; 76604; 80048; 80053; 81001; 82150; 82607; 82728; 82746; 82803; 82948; 83036; 83540; 83605; 83690; 83735; 83880; 84100; 84443; 84484; 85025; 85045; 85610; 85730; 86677; 86886; 86900; 86901; 86920; 87040; 87081; 87086; 92526; 92610; 93005; 94003; 94640; 96360; 99291; C9113; J0610; J1200; J1265; J1642; J1644; J1815; J2060; J2250; J2270; J2370; J2543; J2704; J2916; J3010; J3105; J3490; J7030; J7060; J7620; P9016; Q0092; Q0163